=== PATIENT | female | born 1980 | race Caucasian/White ===

== ENCOUNTER 2018-02-07 08:41 | Observation (INO) | payer BC ==
[2018-02-07] MEDS ORDERED: HYDROmorphone 1 MG/ML Syringe IVPUSH ONE ×2 (08:46→10:30)
[2018-02-07] MEDS ORDERED: Sodium Chloride 0.9% 10 ML Syringe FLUSH PRN (08:46)
[2018-02-07] MEDS ORDERED: Ondansetron 4 MG/2 ML SDV IVPUSH ONE ×2 (08:46→10:30)
[2018-02-07] MEDS ORDERED: Sodium Chloride 0.9% 2.5 ML Syringe FLUSH PRN (08:46)
--- NOTE | 2018-02-07 08:53 | EDM.PDOC ---
ED HPI GENERAL MEDICAL PROBLEM - General Stated Complaint: ABDOMINAL PAIN Time Seen by Provider: 02/07/18 08:42 Source of Information: Reports: Patient History Limitations: Reports: No Limitations - History of Present Illness INITIAL COMMENTS - FREE TEXT/NARRATIVE: History of present illness: []Patient presents with severe right flank pain radiating to her right lower quadrant and into her buttocks. Patient has had several bladder infections in the past but has never had a kidney stone. She remained nauseated and has been dry heaving but has not vomited any fluids. Patient denies any trauma, fevers, chills or diarrhea. Review of systems: As per history of present illness and below otherwise all systems reviewed and negative. Past medical history: As per history of present illness and as reviewed below otherwise noncontributory. Surgical history: As per history of present illness and as reviewed below otherwise noncontributory. Social history: No reported history of drug or alcohol abuse. Family history: As per history of present illness and as reviewed below otherwise noncontributory. Physical exam: General: Well developed, well nourished in severe painful distress bent over. HEENT: Atraumatic, normocephalic, pupils reactive, negative for conjunctival pallor or scleral icterus, mucous membranes moist, throat clear, neck supple, nontender, trachea midline. Lungs: Clear to auscultation, breath sounds equal bilaterally, chest nontender. Heart: S1S2, regular, negative for clicks, rubs, or JVD. Abdomen: Soft, nondistended, nontender. Negative for masses or hepatosplenomegaly. Negative for costovertebral tenderness. Pelvis: Stable nontender. Genitourinary: Deferred. Rectal: Deferred. Extremities: Atraumatic, negative for cords or calf pain. Neurovascular unremarkable. Neuro: Awake, alert, oriented. Cranial nerves II through XII unremarkable. Cerebellum unremarkable. Motor and sensory unremarkable throughout. Exam nonfocal. Skin:warm and dry Diagnostics: CBC, comp, lipase, UA, HCG, CT abdomen and pelvis without contrast showing obstructing 4 mm stone at the right UVJ, and hypokalemia 2.7 Therapeutics: Normal saline 1 L, Dilaudid, Zofran ED Course: She required multiple doses of pain meds and antiemetics. Potassium was being replaced at the time of her admission Impression: Ureterolithiasis, hyper acute tammy Prescriptions: None Plan: Dr. Velazquez was consulted due to the obstructive 4 mm stone and difficulty controlling her pain as well as hypokalemia she will be admitted for pain control and to correct hypokalemia. Definitive disposition and diagnosis as appropriate pending reevaluation and review of above. Abdominal Pain Score (Numeric/FACES): 10 - Related Data Allergies Allergy/AdvReac Type Severity Reaction Status Date / Time acetaminophen [From Vicodin] Allergy Nausea and Verified 02/07/18 09:10 Vomiting gluten Allergy Abdominal Verified 06/13/16 12:31 Pain hydrocodone [From Vicodin] Allergy Nausea and Verified 02/07/18 09:10 Vomiting iodine Allergy Rash Verified 06/13/16 12:31 Home Meds: Home Meds Citalopram [Celexa] 2 tab PO DAILY 06/13/16 [History] Levothyroxine 1 tab PO DAILY 06/13/16 [History] Cranberry 3 tab 02/07/18 [History] Fish Oil/[place]-3 Fatty Acids [Fish Oil 1,000 MG] 1,000 mg DAILY 02/07/18 [ History] Flaxseed Oil 1,000 mg DAILY 02/07/18 [History] Ibuprofen [Advil Migraine] 800 mg 02/07/18 [History] Multivitamin [Multi-Vitamin Daily] 1 tab DAILY 02/07/18 [History] Omeprazole 20 mg DAILY 02/07/18 [History] Ondansetron [Zofran ODT] 4 mg PRN 02/07/18 [History] Vit D3/Folic Acid/B2/B6/B12 [Folgard Tablet] 1 tab DAILY 02/07/18 [History] Past Medical History HEENT History: Reports: None Cardiovascular History: Reports: None Respiratory History: Reports: None Gastrointestinal History: Reports: Celiac Disease, Other (See Below) Other Gastrointestinal History: ulcerative colitis Neurological History: Reports: None Psychiatric History: Reports: Other (See Below) Other Psychiatric History: post depression Endocrine/Metabolic History: Reports: Hypothyroidism Dermatologic History: Reports: None - Infectious Disease History Infectious Disease History: Reports: None - Past Surgical History Female Surgical History: Reports: Section, Tubal Ligation ED ROS GENERAL - Review of Systems Review Of Systems: ROS reveals no pertinent complaints other than HPI. ED EXAM, RENAL/ - Physical Exam Exam: See Below (See history of present illness) Course - Vital Signs Last Recorded V/S: Last Vital Signs Temp 97.7 F 02/07/18 08:50 Pulse 72 02/07/18 08:50 Resp 18 02/07/18 08:50 BP 60/31 L 02/07/18 08:50 Pulse Ox 98 02/07/18 08:50 - Orders/Labs/Meds Orders: Active Orders 24 hr Category Date Time Status Patient Status [ADT] Stat ADT 02/07/18 13:10 Active Regular Diet [DIET] Diet 02/07/18 Dinner Active HYDROmorphone [Dilaudid] Med 02/07/18 13:39 Active 2 mg PO Q3H PRN NS + KCl 20mEq/L [Normal Saline with 20 mEq KCl] 1,000 Med 02/07/18 10:00 Active ml IV ASDIRECTED Potassium Chloride 40 meq Med 02/07/18 15:00 Active Sodium Chloride 0.9% [Normal Saline] 500 ml IV ONETIME Sodium Chloride 0.9% [Saline Flush] Med 02/07/18 08:46 Active 10 ml FLUSH ASDIRECTED PRN Sodium Chloride 0.9% [Saline Flush] Med 02/07/18 08:46 Active 2.5 ml FLUSH ASDIRECTED PRN cefTRIAXone [Rocephin in Dextrose,Iso-Osm 1 GM/50 ML] 1 Med 02/08/18 13:45 Active gm Premix Bag 1 bag IV Q24H Saline Lock Insert [OM.PC] Stat Oth 02/07/18 08:45 Ordered Resuscitation Status Routine Resus Stat 02/07/18 13:32 Ordered Medication Orders Hydromorphone HCl (Dilaudid) 2 mg PO Q3H PRN PRN Reason: Abdominal Pain Potassium Chloride/Sodium Chloride (Normal Saline With 20 Meq Kcl) 1,000 mls @ 150 mls/hr IV ASDIRECTED HARSHA Last Admin: 02/07/18 10:11 Dose: 150 mls/hr Potassium Chloride 40 meq/ (Sodium Chloride) 520 mls @ 130 mls/hr IV ONETIME HARSHA Stop: 02/07/18 18:59 Ceftriaxone Sodium/Dextrose 1 (gm/ Premix) 50 mls @ 100 mls/hr IV Q24H HARSHA Sodium Chloride (Saline Flush) 10 ml FLUSH ASDIRECTED PRN PRN Reason: Keep Vein Open Sodium Chloride (Saline Flush) 2.5 ml FLUSH ASDIRECTED PRN PRN Reason: Keep Vein Open Labs: Laboratory Tests 02/07/18 02/07/18 02/07/18 Range/Units 09:05 09:05 11:00 WBC 7.57 (4.0-11.0) K/uL RBC 5.45 (4.30-5.90) M/uL Hgb 13.3 (12.0-16.0) g/dL Hct 41.5 (36.0-46.0) % MCV 76.1 L (80.0-98.0) fL MCH 24.4 L (27.0-32.0) pg MCHC 32.0 (31.0-37.0) g/dL RDW Std Deviation 50.1 (28.0-62.0) fl RDW Coeff of Toshia 18 H (11.0-15.0) % Plt Count 425 H (150-400) K/uL MPV 9.30 (7.40-12.00) fL Neut % (Auto) 65.2 (48.0-80.0) % Lymph % (Auto) 22.7 (16.0-40.0) % [place] % (Auto) 9.1 (0.0-15.0) % Eos % (Auto) 2.2 (0.0-7.0) % Baso % (Auto) 0.8 (0.0-1.5) % Neut # (Auto) 4.9 (1.4-5.7) K/uL Lymph # (Auto) 1.7 (0.6-2.4) K/uL [place] # (Auto) 0.7 (0.0-0.8) K/uL Eos # (Auto) 0.2 (0.0-0.7) K/uL Baso # (Auto) 0.1 (0.0-0.1) K/uL Nucleated RBC % 0.0 /100WBC Nucleated RBCs # 0 K/uL Sodium 137 (136-145) mmol/L Potassium 2.7 L (3.5-5.1) mmol/L Chloride 105 (98-107) mmol/L Carbon Dioxide 24.6 (21.0-32.0) mmol/L BUN 13 (7.0-18.0) mg/dL Creatinine 0.9 (0.6-1.0) mg/dL Est Cr Clr Drug Dosing TNP Estimated GFR (MDRD) > 60.0 ml/min Glucose 101 (74-106) mg/dL Calcium 8.3 L (8.5-10.1) mg/dL Total Bilirubin 0.7 (0.2-1.0) mg/dL AST 37 (15-37) IU/L ALT 45 (14-63) IU/L Alkaline Phosphatase 76 (46-116) U/L Total Protein 6.2 L (6.4-8.2) g/dL Albumin 2.6 L (3.4-5.0) g/dL Globulin 3.6 H (2.0-3.5) g/dL Albumin/Globulin Ratio 0.7 L (1.3-2.8) Lipase 97 (73-393) U/L Urine Color ORANGE Urine Appearance SLT CLOUDY Urine pH 6.5 (5.0-8.0) Ur Specific [place] 1.025 (1.001-1.035) Urine Protein 100 (NEGATIVE) mg/dL Urine Glucose (UA) 250 H (NEGATIVE) mg/dL Urine Ketones TRACE H (NEGATIVE) mg/dL Urine Occult Blood TRACE-LYSED (NEGATIVE) Urine Nitrite POSITIVE H (NEGATIVE) Urine Bilirubin MODERATE H (NEGATIVE) Urine Ictotest POSITIVE Urine Urobilinogen >=8.0 H (<2.0) EU/dL Ur Leukocyte Esterase TRACE (NEGATIVE) Urine RBC 2-4 (0-2/HPF) Urine WBC 0-1 (0-5/HPF) Ur Epithelial Cells FEW (NONE-FEW) Other Crystals Amorphous Sediment MODERATE (NEGATIVE) Urine Bacteria FEW (NEGATIVE) Urine HCG, Qual (NEGATIVE) 02/07/18 Range/Units 11:00 WBC (4.0-11.0) K/uL RBC (4.30-5.90) M/uL Hgb (12.0-16.0) g/dL Hct (36.0-46.0) % MCV (80.0-98.0) fL MCH (27.0-32.0) pg MCHC (31.0-37.0) g/dL RDW Std Deviation (28.0-62.0) fl RDW Coeff of Toshia (11.0-15.0) % Plt Count (150-400) K/uL MPV (7.40-12.00) fL Neut % (Auto) (48.0-80.0) % Lymph % (Auto) (16.0-40.0) % [place] % (Auto) (0.0-15.0) % Eos % (Auto) (0.0-7.0) % Baso % (Auto) (0.0-1.5) % Neut # (Auto) (1.4-5.7) K/uL Lymph # (Auto) (0.6-2.4) K/uL [place] # (Auto) (0.0-0.8) K/uL Eos # (Auto) (0.0-0.7) K/uL Baso # (Auto) (0.0-0.1) K/uL Nucleated RBC % /100WBC Nucleated RBCs # K/uL Sodium (136-145) mmol/L Potassium (3.5-5.1) mmol/L Chloride (98-107) mmol/L Carbon Dioxide (21.0-32.0) mmol/L BUN (7.0-18.0) mg/dL Creatinine (0.6-1.0) mg/dL Est Cr Clr Drug Dosing Estimated GFR (MDRD) ml/min Glucose (74-106) mg/dL Calcium (8.5-10.1) mg/dL Total Bilirubin (0.2-1.0) mg/dL AST (15-37) IU/L ALT (14-63) IU/L Alkaline Phosphatase (46-116) U/L Total Protein (6.4-8.2) g/dL Albumin (3.4-5.0) g/dL Globulin (2.0-3.5) g/dL Albumin/Globulin Ratio (1.3-2.8) Lipase (73-393) U/L Urine Color Urine Appearance Urine pH (5.0-8.0) Ur Specific [place] (1.001-1.035) Urine Protein (NEGATIVE) mg/dL Urine Glucose (UA) (NEGATIVE) mg/dL Urine Ketones (NEGATIVE) mg/dL Urine Occult Blood (NEGATIVE) Urine Nitrite (NEGATIVE) Urine Bilirubin (NEGATIVE) Urine Ictotest Urine Urobilinogen (<2.0) EU/dL Ur Leukocyte Esterase (NEGATIVE) Urine RBC (0-2/HPF) Urine WBC (0-5/HPF) Ur Epithelial Cells (NONE-FEW) Other Crystals Amorphous Sediment (NEGATIVE) Urine Bacteria (NEGATIVE) Urine HCG, Qual NEGATIVE (NEGATIVE) Meds: Medications Generic Name Dose Route Start Last Admin Trade Name Angelina PRN Reason Stop Dose Admin Hydromorphone HCl 2 mg 02/07/18 13:39 Dilaudid PO Q3H PRN Abdominal Pain Potassium Chloride/Sodium Chloride 1,000 mls @ 150 mls/hr 02/07/18 10:00 06/26 10:11 Normal Saline With 20 Meq Kcl IV 150 mls/hr ASDIRECTED HARSHA Administration Potassium Chloride 40 meq/ 520 mls @ 130 mls/hr 02/07/18 15:00 Sodium Chloride IV 02/07/18 18:59 ONETIME HARSHA Ceftriaxone Sodium/Dextrose 1 50 mls @ 100 mls/hr 02/08/18 13:45 gm/ Premix IV Q24H HARSHA Sodium Chloride 10 ml 02/07/18 08:46 Saline Flush FLUSH ASDIRECTED PRN Keep Vein Open Sodium Chloride 2.5 ml 02/07/18 08:46 Saline Flush FLUSH ASDIRECTED PRN Keep Vein Open Discontinued Medications Generic Name Dose Route Start Last Admin Trade Name Angelina PRN Reason Stop Dose Admin Hydromorphone HCl 1 mg 02/07/18 08:46 02/07/18 08:45 Dilaudid IVPUSH 02/07/18 08:47 1 mg ONETIME ONE Administration Hydromorphone HCl 0.5 mg 02/07/18 10:30 02/07/18 10:38 Dilaudid IVPUSH 02/07/18 10:31 0.5 mg ONETIME ONE Administration Sodium Chloride 1,000 mls @ 999 mls/hr 02/07/18 11:17 02/07/18 11:23 Normal Saline IV 02/07/18 12:17 999 mls/hr .Bolus ONE Administration Sodium Chloride 1,000 mls @ 999 mls/hr 02/07/18 11:18 02/07/18 11:22 Normal Saline IV 02/07/18 12:18 Not Given .Bolus ONE Ceftriaxone Sodium/Dextrose 1 50 mls @ 100 mls/hr 02/07/18 11:35 02/07/18 12: 29 gm/ Premix IV 02/07/18 12:04 100 mls/hr ONETIME ONE Administration Ketorolac Tromethamine 30 mg 02/07/18 09:08 02/07/18 09:26 Toradol IVPUSH 02/07/18 09:09 30 mg ONETIME ONE Administration Metoclopramide HCl 10 mg 02/07/18 11:38 02/07/18 12:15 Reglan IV 02/07/18 11:39 10 mg ONETIME ONE Administration Ondansetron HCl 4 mg 02/07/18 08:46 02/07/18 08:42 Zofran IVPUSH 02/07/18 08:47 4 mg ONETIME ONE Administration Ondansetron HCl 4 mg 02/07/18 10:30 02/07/18 10:39 Zofran IVPUSH 02/07/18 10:31 4 mg ONETIME ONE Administration Departure - Departure Time of Disposition: 14:05 Disposition: Refer to Observation Condition: Fair Clinical Impression: Ureterolithiasis, Hypokalemia - Discharge Information *PRESCRIPTION DRUG MONITORING PROGRAM REVIEWED*: No *COPY OF PRESCRIPTION DRUG MONITORING REPORT IN PATIENT OWEN: No Referrals: Ethel Ross DO [Primary Care Provider] - - My Orders Last 24 Hours: My Active Orders 02/07/18 08:45 Saline Lock Insert [OM.PC] Stat 02/07/18 08:46 Sodium Chloride 0.9% [Saline Flush] 10 ml FLUSH ASDIRECTED PRN Sodium Chloride 0.9% [Saline Flush] 2.5 ml FLUSH ASDIRECTED PRN 02/07/18 10:00 NS + KCl 20mEq/L [Normal Saline with 20 mEq KCl] 1,000 ml IV ASDIRECTED 02/07/18 13:10 Patient Status [ADT] Stat - Assessment/Plan Last 24 Hours: My Active Orders 02/07/18 08:45 Saline Lock Insert [OM.PC] Stat 02/07/18 08:46 Sodium Chloride 0.9% [Saline Flush] 10 ml FLUSH ASDIRECTED PRN Sodium Chloride 0.9% [Saline Flush] 2.5 ml FLUSH ASDIRECTED PRN 02/07/18 10:00 NS + KCl 20mEq/L [Normal Saline with 20 mEq KCl] 1,000 ml IV ASDIRECTED 02/07/18 13:10 Patient Status [ADT] Stat
[2018-02-07] MEDS ORDERED: Ketorolac 30 MG/ML SDV IVPUSH ONE (09:08)
[2018-02-07 09:35] LABS: CHLORIDE,CL 105 mmol/L (98-107); SODIUM,NA 137 mmol/L (136-145)
[2018-02-07] MEDS ORDERED: NS + KCl 20mEq/L 1,000 ML IV SCH (10:00)
[2018-02-07] MEDS ORDERED: Sodium Chloride 0.9% 1,000 ML IV ONE ×2 (11:17→11:18)
[2018-02-07] MEDS ORDERED: cefTRIAXone 1 GM in Premix Bag 1 BAG IV ONE (11:35)
[2018-02-07] MEDS ORDERED: Metoclopramide 10 MG/2 ML SDV IV ONE (11:38)
--- NOTE | 2018-02-07 12:43 | CT ---
CT of the abdomen and pelvis without contrast. HISTORY: UTI TECHNIQUE: Axial CT images were obtained of the abdomen and pelvis without contrast. Coronal and sagi ttal reconstructions obtained. FINDINGS: The lung bases are clear, no pleural effusion. The liver, spleen, adrenal glands, and pancreas appear unremarkable for noncontrast examination. The gallbladder appears normal. There is no bulky retroperitoneal lymphadenopathy. No abdominal ascites. Multiple nonpathologically enlarged mesenteric lymph nodes are noted. There is a 4 x 2 mm calcification at the right ureterovesicular junction with moderate proximal hydro nephrosis and perinephric stranding. The large and small bowel are normal in caliber without evidence of obstruction. The appendix appears normal. There is no bulky pelvic lymphadenopathy. No free fluid. No free air. The urinary bladder ap pears normal. The visualized osseous structures appear normal. IMPRESSION: 1. There is an obstructing 4 x 2 mm stone at the right ureterovesicular junction with moderate proxim al hydronephrosis.
--- NOTE | 2018-02-07 14:19 | CONS ---
DATE OF CONSULTATION: 02/07/2018 DATE OF : 1980 PRIMARY CARE PHYSICIAN: None PCP HISTORY OF PRESENT ILLNESS: A 37-year-old, she was seen in the emergency room today. She presented with sudden onset of right flank pain and right lower quadrant pain. She had a UA that was positive for nitrite and trace leukocytes. No significant number of white blood cells, but she thought she was having a bladder infection all week. Her white blood count is normal. Her potassium was 2.7 and calcium was 8.3, creatinine was 0.9. She has chronic colitis. She also celiac disease, that is according to the patient. She is allergic to iodine. She apparently received a firm amount of pain medication. PHYSICAL EXAMINATION: GENERAL APPEARANCE: Normal. She appears reasonably comfortable at this point. This all about 10 to 15 minutes after . HEART: Shows normal sinus rhythm. ABDOMEN: Shows mild tenderness over the right CVA and right lumbar region. LUNGS: Clear. IMPRESSION: 1. She does have 4 mm stone at the right UVJ with moderate 2+ hydronephrosis and hydroureter. 2. Right lower ureteral stone, possible urinary tract infection. PLAN: She was given 1 g Rocephin IV in the emergency room. She will be admitted to the hospital for pain management or IV fluids with potassium, and I will see how she does over the next 24 to 48 hours. BERTHA LEAL /[id number]
[2018-02-07] MEDS ORDERED: Potassium Chloride 40 MEQ in Sodium Chloride 0.9% 500 ML IV SCH (15:00)
[2018-02-07] MEDS: HYDROmorphone 2 MG Tab PO PRN ×2 (15:48→21:19)
[2018-02-08] MEDS: HYDROmorphone 2 MG Tab PO PRN ×2 (03:18→08:23)
[2018-02-08 06:43] LABS: CHLORIDE,CL 111 mmol/L (98-107); SODIUM,NA 140 mmol/L (136-145)
[2018-02-08] MEDS ORDERED: Acetaminophen 325 MG Tab PO ONE (11:40)
[2018-02-08] MEDS ORDERED: Ibuprofen 400 MG Tab PO ONE (11:41)
[2018-02-08 11:55] VITALS: BP 99/53
--- NOTE | 2018-02-08 13:17 | DISCH ---
DATE OF DISCHARGE: PRIMARY CARE PHYSICIAN: None PCP A 37-year-old, she was admitted to the hospital with right lower ureteral stone that was about 3 mm that was causing mild hydronephrosis and severe pain. While she was here, she was maintained on pain medicine. She was given Dilaudid and Tylenol. She was given additional potassium supplement because her potassium at the time of presentation was 2.7. Her CT scan showed no other stones. She was given 2 doses of Rocephin 1 g each, one at the time of admission and next one the following morning. She was given a total of 90 mEq of potassium while here, and her potassium has gone up from 2.7 to 2.8. Admitted on 02/07/2018; she was discharged on 02/08/2018. At the time of discharge, she is comfortable. Her blood pressure was 99/53. Her pulse rate is normal at 78. O2 saturations are normal at 99% on room air. Temperature is normal at 96.2. She was sent home to see if she will pass the stone on her own. She is instructed to come back and see me if she does not pass the stone or if the pain continues beyond another week. She was sent home on KCl 20 mEq twice a day with instructions to see her primary care provider for followup for the potassium level 2 weeks. BERTHA LEAL /[id number]
[2018-02-08] MEDS ORDERED: cefTRIAXone 1 GM in Premix Bag 1 BAG IV SCH (13:45)
== END 2018-02-08 13:30 | disposition home or self-care (01) ==
LOC: MW.ED 08:41 → MW.MS 14:26
PROVIDERS: ADMIT Urology; ATTEND Urology
DX: N13.2 Hydronephrosis with renal and ureteral calculous obstruction (principal)
CPT/HCPCS: 36415; 74176; 80053; 81001; 81025; 83690; 84132; 85025; 96361; 96365; 96366; 96375; 96376; 99285; A9270; J0696; J1170; J1885; J2405; J2765; J3480; J7040; J7120; 99283; G0378

== ENCOUNTER 2018-08-24 17:15 | Emergency (ER) | payer BC ==
[2018-08-24] MEDS ORDERED: Sodium Chloride 0.9% 1,000 ML IV ONE (17:17)
--- NOTE | 2018-08-24 17:17 | EDM.PDOC ---
<Nico Terrell - Last Filed: 08/24/18 19:27> ED HPI GENERAL MEDICAL PROBLEM - General Chief Complaint: Syncope Stated Complaint: CHEST PAIN Time Seen by Provider: 08/24/18 17:17 Source of Information: Reports: Patient - History of Present Illness INITIAL COMMENTS - FREE TEXT/NARRATIVE: HISTORY AND PHYSICAL: History of present illness: [Patient presents with syncope, she has known iron deficiency calcium deficiency and celiac disease, she was at the cancer center and was infused with a new brand of iron in developing welts/urticarial rash and originally presented for this, however , she had an episode of syncope out in our lobby no fever nausea vomiting chills sweats alert interactive at this time no distress no lip swelling tongue swelling or oral pharyngeal edema Patient did develop some rigidity/seizure-like activity however she was fully aware talking and answering questions more consistent with pseudoseizure activity ] Review of systems: As per history of present illness and below otherwise all systems reviewed and negative. Past medical history: As per history of present illness and as reviewed below otherwise noncontributory. Surgical history: As per history of present illness and as reviewed below otherwise noncontributory. Social history: No reported history of drug or alcohol abuse. Family history: As per history of present illness and as reviewed below otherwise noncontributory. Physical exam: HEENT: Atraumatic, normocephalic, pupils reactive, negative for conjunctival pallor or scleral icterus, mucous membranes moist, throat clear, neck supple, nontender, trachea midline. no Tongue swelling or oral pharyngeal edema Lungs: Clear to auscultation, breath sounds equal bilaterally, chest nontender. Heart: S1S2, regular, negative for clicks, rubs, or JVD. Abdomen: Soft, nondistended, nontender. Negative for masses or hepatosplenomegaly. Negative for costovertebral tenderness. Pelvis: Stable nontender. Genitourinary: Deferred. Rectal: Deferred. Extremities: Atraumatic, negative for cords or calf pain. Neurovascular unremarkable. Neuro: Awake, alert, oriented. Cranial nerves II through XII unremarkable. Cerebellum unremarkable. Motor and sensory unremarkable throughout. Exam nonfocal. Skin urticarial rash over arms trunks the legs no lip swelling tongue swelling or oral pharyngeal edema Diagnostics: [CBC CMP UA hCG troponin EKG Chest [address] orthostatic vitals ] Therapeutics: NS Solu-Medrol 125 mg IV Benadryl 50 mg IV ] Impression: [Syncope]-etiology unclear Urticarial rash-resolved Pseudoseizure Chronic history baseline Definitive disposition and diagnosis as appropriate pending reevaluation and review of above. chest Pain Score (Numeric/FACES): 5 - Related Data Allergies Allergy/AdvReac Type Severity Reaction Status Date / Time acetaminophen [From Vicodin] Allergy Nausea and Verified 02/07/18 09:10 Vomiting gluten Allergy Abdominal Verified 06/13/16 12:31 Pain hydrocodone [From Vicodin] Allergy Nausea and Verified 02/07/18 09:10 Vomiting iodine Allergy Rash Verified 06/13/16 12:31 Home Meds: Home Meds Citalopram [Celexa] 2 tab PO DAILY 06/13/16 [History] Levothyroxine 1 tab PO DAILY 06/13/16 [History] Cranberry 3 tab 02/07/18 [History] Fish Oil/[place]-3 Fatty Acids [Fish Oil 1,000 MG] 1,000 mg DAILY 02/07/18 [ History] Flaxseed Oil 1,000 mg DAILY 02/07/18 [History] Ibuprofen [Advil Migraine] 800 mg 02/07/18 [History] Multivitamin [Multi-Vitamin Daily] 1 tab DAILY 02/07/18 [History] Omeprazole 20 mg DAILY 02/07/18 [History] Ondansetron [Zofran ODT] 4 mg PRN 02/07/18 [History] Vit D3/Folic Acid/B2/B6/B12 [Folgard Tablet] 1 tab DAILY 02/07/18 [History] Past Medical History HEENT History: Reports: None Cardiovascular History: Reports: None Respiratory History: Reports: None Gastrointestinal History: Reports: Celiac Disease, Other (See Below) Other Gastrointestinal History: ulcerative colitis Neurological History: Reports: None Psychiatric History: Reports: Other (See Below) Other Psychiatric History: post depression Endocrine/Metabolic History: Reports: Hypothyroidism Dermatologic History: Reports: None - Infectious Disease History Infectious Disease History: Reports: None - Past Surgical History Female Surgical History: Reports: Section, Tubal Ligation Social & Family History - Family History Family Medical History: Noncontributory - Caffeine Use Caffeine Use: Reports: Soda Caffeine Use Comment: "lots of Dr. Pope every day" ED ROS GENERAL - Review of Systems Review Of Systems: ROS reveals no pertinent complaints other than HPI. ED EXAM, GENERAL - Physical Exam Exam: See Below (See dictation) Course - Vital Signs Last Recorded V/S: Last Vital Signs Temp 36.4 C 08/24/18 17:18 Pulse 80 08/24/18 17:18 Resp 16 08/24/18 17:18 BP 115/78 08/24/18 17:18 Pulse Ox 100 08/24/18 17:18 Orthostatic Blood Pressure [ 98/63 Standing] Orthostatic Blood Pressure [ 115/67 Sitting] Orthostatic Blood Pressure [ 112/65 Supine] - Orders/Labs/Meds Orders: Active Orders 24 hr Category Date Time Status EKG Documentation Completion [RC] STAT Care 08/24/18 17:17 Active Orthostatic Vital Signs [RC] ASDIRECTED Care 08/24/18 17:18 Active COMPREHENSIVE METABOLIC PN,CMP [CHEM] Stat Lab 08/24/18 17:10 Results TROPONIN I [CHEM] Stat Lab 08/24/18 17:10 Results UA RFX NEMO AND CULT IF INDIC [URIN] Stat Lab 08/24/18 18:30 Received Labs: Laboratory Tests 08/24/18 08/24/18 08/24/18 Range/Units 17:10 17:10 18:30 WBC 8.18 (4.0-11.0) K/uL RBC 4.81 (4.30-5.90) M/uL Hgb 12.4 (12.0-16.0) g/dL Hct 38.9 (36.0-46.0) % MCV 80.9 (80.0-98.0) fL MCH 25.8 L (27.0-32.0) pg MCHC 31.9 (31.0-37.0) g/dL RDW Std Deviation 53.9 (28.0-62.0) fl RDW Coeff of [place] 19 H (11.0-15.0) % Plt Count 430 H (150-400) K/uL MPV 9.50 (7.40-12.00) fL Neut % (Auto) 64.4 (48.0-80.0) % Lymph % (Auto) 26.0 (16.0-40.0) % [place] % (Auto) 6.7 (0.0-15.0) % Eos % (Auto) 2.3 (0.0-7.0) % Baso % (Auto) 0.6 (0.0-1.5) % Neut # (Auto) 5.3 (1.4-5.7) K/uL Lymph # (Auto) 2.1 (0.6-2.4) K/uL [place] # (Auto) 0.6 (0.0-0.8) K/uL Eos # (Auto) 0.2 (0.0-0.7) K/uL Baso # (Auto) 0.1 (0.0-0.1) K/uL Sodium 139 (136-145) mmol/L Potassium 3.0 L (3.5-5.1) mmol/L Chloride 103 (98-107) mmol/L Carbon Dioxide 25.2 (21.0-32.0) mmol/L BUN 7 (7.0-18.0) mg/dL Creatinine 0.7 (0.6-1.0) mg/dL Est Cr Clr Drug Dosing 118.99 mL/min Estimated GFR (MDRD) > 60.0 ml/min Glucose 96 (74-106) mg/dL Calcium 8.6 (8.5-10.1) mg/dL Total Bilirubin 0.8 (0.2-1.0) mg/dL ALT 48 (14-63) IU/L Alkaline Phosphatase 81 (46-116) U/L Troponin I < 0.050 (0.000-0.056) ng/mL Total Protein 6.6 (6.4-8.2) g/dL Albumin 2.8 L (3.4-5.0) g/dL Globulin 3.8 (2.6-4.0) g/dL Albumin/Globulin Ratio 0.7 L (0.9-1.6) Urine Color YELLOW Urine Appearance CLEAR Urine pH 6.5 (5.0-8.0) Ur Specific [place] <= 1.005 (1.001-1.035) Urine Protein NEGATIVE (NEGATIVE) mg/dL Urine Glucose (UA) NEGATIVE (NEGATIVE) mg/dL Urine Ketones NEGATIVE (NEGATIVE) mg/dL Urine Occult Blood SMALL H (NEGATIVE) Urine Nitrite NEGATIVE (NEGATIVE) Urine Bilirubin NEGATIVE (NEGATIVE) Urine Urobilinogen 0.2 (<2.0) EU/dL Ur Leukocyte Esterase NEGATIVE (NEGATIVE) Urine RBC 1-2 (0-2/HPF) Urine WBC 0-1 (0-5/HPF) Ur Epithelial Cells OCCASIONAL (NONE-FEW) Urine Bacteria RARE (NEGATIVE) Meds: Medications Discontinued Medications Generic Name Dose Route Start Last Admin Trade Name Roqueq PRN Reason Stop Dose Admin Diphenhydramine HCl 50 mg 08/24/18 17:22 08/24/18 17:26 Benadryl IVPUSH 08/24/18 17:23 50 mg ONETIME ONE Administration Sodium Chloride 1,000 mls @ 999 mls/hr 08/24/18 17:17 08/24/18 17:26 Normal Saline IV 08/24/18 18:17 999 mls/hr STAT ONE Administration Lorazepam Confirm 08/24/18 17:33 08/24/18 17:40 Ativan Administered 08/24/18 17:34 Not Given Dose 2 mg .ROUTE .STK-MED ONE Lorazepam 1 mg 08/24/18 17:39 08/24/18 17:40 Ativan IVPUSH 08/24/18 17:40 1 mg ONETIME ONE Administration Methylprednisolone Sodium Succinate 125 mg 08/24/18 17:22 08/24/18 17:26 Solu-Medrol IVPUSH 08/24/18 17:23 125 mg ONETIME ONE Administration Departure - Departure Time of Disposition: 19:27 Disposition: Home, Self-Care 01 Condition: Good Clinical Impression: Syncope - Discharge Information Referrals: PCP,Unknown [Primary Care Provider] - Forms: ED Department Discharge Additional Instructions: The following information is given to patients seen in the emergency department who are being discharged to home. This information is to outline your options for follow-up care. We provide all patients seen in our emergency department with a follow-up referral. The need for follow-up, as well as the timing and circumstances, are variable depending upon the specifics of your emergency department visit. If you don't have a primary care physician on staff, we will provide you with a referral. We always advise you to contact your personal physician following an emergency department visit to inform them of the circumstance of the visit and for follow-up with them and/or the need for any referrals to a consulting specialist. The emergency department will also refer you to a specialist when appropriate. This referral assures that you have the opportunity for followup care with a specialist. All of these measure are taken in an effort to provide you with optimal care, which includes your followup. Under all circumstances we always encourage you to contact your private physician who remains a resource for coordinating your care. When calling for followup care, please make the office aware that this follow-up is from your recent emergency room visit. If for any reason you are refused follow-up, please contact the [facility] emergency department at and asked to speak to the emergency department charge nurse. Follow-up primary medical doctor as needed as discussed return as needed as discussed push fluids activity as tolerated <Benjamin Baker - Last Filed: 08/24/18 19:33> Course - Vital Signs Text/Narrative:: Patient's emergency department course has been unremarkable diagnostic studies were similarly unremarkable CT scan was negative patient will be discharged accordingly Departure - Departure Condition: Good
[2018-08-24] MEDS ORDERED: diphenhydrAMINE 50 MG/ML SDV IVPUSH ONE (17:22)
[2018-08-24] MEDS ORDERED: methylPREDNISolone Sodium Succinate 125 MG/2 ML SDV IVPUSH ONE (17:22)
[2018-08-24] MEDS ORDERED: LORazepam 2 MG/ML SDV ONE (17:33)
[2018-08-24] MEDS ORDERED: LORazepam 2 MG/ML SDV IVPUSH ONE (17:39)
[2018-08-24 17:56] LABS: CHLORIDE,CL 103 mmol/L (98-107); SODIUM,NA 139 mmol/L (136-145)
--- NOTE | 2018-08-24 18:11 | CR ---
INDICATION: syncope INDICATION: Syncope. TECHNIQUE: Chest 1 view. COMPARISON: 06/13/2016. FINDINGS: Cardiovascular and mediastinum: Heart size and vasculature are normal in caliber and appearance. Mediastinum is within normal limits. Lungs and pleural space: Lungs are clear. No sign of infiltrate or mass. No sign of pleural effusion. No pneumothorax. Bones and soft tissues: No significant findings. IMPRESSION: Lungs are clear. Dictated by Candelario Turcios MD @ 08/24/2018 6:10:13 PM Dictated by: Candelario Turcios MD @ 08/24/2018 18:10:21 (Electronically Signed)
--- NOTE | 2018-08-24 19:27 | CT ---
INDICATION: Syncope TECHNIQUE: CT head without contrast. COMPARISON: None. FINDINGS: CSF spaces: Within normal limits for age. Brain parenchyma: The luna-white differentiation is normal. No sign of mass, hemorrhage, or midline shift. Skull base and calvarium: The visualized paranasal sinuses and mastoid air cells demonstrate no acute or significant findings. The visualized orbits are grossly unremarkable. No skull fractures. IMPRESSION: Unremarkable noncontrast head CT. Please note that all CT scans at this facility use dose modulation, iterative reconstruction, and/or weight-based dosing when appropriate to reduce radiation dose to as low as reasonably achievable. Dictated by Monster Patel MD @ Aug 24 2018 7:24PM Signed by Dr. Monster Patel @ Aug 24 2018 7:26PM
[2018-08-24 20:28] VITALS: BP 121/71
== END 2018-08-24 19:52 | disposition home or self-care (01) ==
LOC: MW.ED 17:15
DX: R55 Syncope and collapse (principal); L50.9 Urticaria, unspecified; R56.9 Unspecified convulsions; Z88.5 Allergy status to narcotic agent; Z79.899 Other long term (current) drug therapy
CPT/HCPCS: 70450; 71045; 80053; 81001; 84484; 85025; 93005; 96361; 96374; 96375; 99285; J1200; J2060; J2930; J7040; 99284

== ENCOUNTER 2018-12-20 20:06 | Emergency (ER) | payer BC ==
[2018-12-20] MEDS ORDERED: Sodium Chloride 0.9% 10 ML Syringe FLUSH PRN (20:34)
[2018-12-20] MEDS ORDERED: Sodium Chloride 0.9% 2.5 ML Syringe FLUSH PRN (20:34)
[2018-12-20] MEDS ORDERED: Ketorolac 30 MG/ML SDV IVPUSH ONE (20:36)
[2018-12-20] MEDS ORDERED: Sodium Chloride 0.9% 1,000 ML IV ONE (20:36)
[2018-12-20] MEDS ORDERED: Ondansetron 4 MG/2 ML SDV IVPUSH ONE (20:36)
--- NOTE | 2018-12-20 20:39 | EDM.PDOC ---
ED HPI GENERAL MEDICAL PROBLEM - General Chief Complaint: Genitourinary Problem Stated Complaint: PT HAS BLADDER INFECTION Time Seen by Provider: 12/20/18 20:28 - History of Present Illness INITIAL COMMENTS - FREE TEXT/NARRATIVE: HISTORY AND PHYSICAL: History of present illness: The patient is a 37-year-old female with a long-standing history of colitis and has had kidney stones and frequent UTIs, at least 3 per year, and presents with urinary frequency burning and suprapubic pain for the last 3 weeks which is now traveling to bilateral flanks and she is concerned about an infection. She says that because of her colitis she doesn't want to take antibiotics often so she tries to treat her UTIs at home and usually she doesn't have to go see the doctor. This is not improved so she is here for care. She's had nausea but no vomiting and she says that whenever something else is stressing her she gets more diarrhea and her colitis has "kicked in" and she's having more loose stools but she is not concerned about her bowels today or the colitis. She's had no fevers chills no chest pain or shortness of breath and no midline back pain. The patient says she had a cervical ablation Review of systems: As per history of present illness and below otherwise all systems reviewed and negative. Past medical history: As per history of present illness and as reviewed below otherwise noncontributory. Surgical history: As per history of present illness and as reviewed below otherwise noncontributory. Social history: No reported history of drug or alcohol abuse. Family history: As per history of present illness and as reviewed below otherwise noncontributory. Physical exam: General: Well-developed well-nourished female somewhat exaggerated on my evaluation and is nontoxic, vital signs are noted by me HEENT: Atraumatic, normocephalic, pupils reactive, negative for conjunctival pallor or scleral icterus, mucous membranes moist, throat clear, neck supple, nontender, trachea midline. Lungs: Clear to auscultation, breath sounds equal bilaterally, chest nontender. Heart: S1S2, regular rate and rhythm no overt murmurs Abdomen: Soft, nondistended, hyperactive bowel sounds, no tympany on percussion , abdomen is very soft and only tenderness in the suprapubic area Negative for masses or hepatosplenomegaly. Patient has bilateral costovertebral tenderness with even minor palpation and is somewhat exaggerated Pelvis: Stable nontender. Genitourinary: Deferred. Rectal: Deferred. Extremities: Atraumatic, negative for cords or calf pain. Neurovascular unremarkable. Neuro: Awake, alert, oriented. Cranial nerves II through XII unremarkable. Cerebellum unremarkable. Motor and sensory unremarkable throughout. Exam nonfocal. Diagnostics: UA UCG urine culture CBC CMP lactate to scan of the abdomen and pelvis Therapeutics: IV fluids Zofran Toradol potassium by mouth, Cipro I discussed all testing results with the patient and at bedside and she says she has had ovarian cysts in the past so she is not surprised and she is now telling me that her suprapubic pain is little bit more on the right. She is aware of the low potassium and that I will give her 1 dose here of potassium and never met recommended using dietary resources to increase the potassium. She is aware of the other CT scan findings include the incidental liver cyst and will follow that up in the clinic. She has a provider at [facility]. She does not have a health information specialist and I will give her our on-call referral information. She is aware that she needs to have this followed up with a pelvic ultrasound. We discussed antibiotic treatment for the UTI and she is comfortable with Cipro. She now tells me she has had many UTIs in the past but she has not taken antibiotics several years and is always treated him symptomatically at home. She is aware of reasons to return to the ED Impression: Suprapubic pain, UTI, right ovarian cyst, mild hypokalemia Definitive disposition and diagnosis as appropriate pending reevaluation and review of above. Right Flank Pain Score (Numeric/FACES): 7 - Related Data Allergies Allergy/AdvReac Type Severity Reaction Status Date / Time acetaminophen [From Vicodin] Allergy Nausea and Verified 12/20/18 20:22 Vomiting gluten Allergy Abdominal Verified 12/20/18 20:22 Pain hydrocodone [From Vicodin] Allergy Nausea and Verified 12/20/18 20:22 Vomiting iodine Allergy Rash Verified 12/20/18 20:22 Home Meds: Home Meds Citalopram [Celexa] 2 tab PO DAILY 06/13/16 [History] Levothyroxine 1 tab PO DAILY 06/13/16 [History] Cranberry 3 tab PO ASDIRECTED 02/07/18 [History] Fish Oil/[place]-3 Fatty Acids [Fish Oil 1,000 MG] 1,000 mg PO DAILY 02/07/18 [ History] Flaxseed Oil 1,000 mg PO DAILY 02/07/18 [History] Ibuprofen [Advil Migraine] 800 mg PO ASDIRECTED 02/07/18 [History] Multivitamin [Multi-Vitamin Daily] 1 tab PO DAILY 02/07/18 [History] Omeprazole 20 mg PO DAILY 02/07/18 [History] Ondansetron [Zofran ODT] 4 mg PO ASDIRECTED PRN 02/07/18 [History] Vit D3/Folic Acid/B2/B6/B12 [Folgard Tablet] 1 tab PO DAILY 02/07/18 [History] Escitalopram [Lexapro] 40 mg PO DAILY 12/20/18 [History] Past Medical History HEENT History: Reports: None Cardiovascular History: Reports: None Respiratory History: Reports: None Gastrointestinal History: Reports: Celiac Disease, Other (See Below) Other Gastrointestinal History: ulcerative colitis Neurological History: Reports: None Psychiatric History: Reports: Other (See Below) Other Psychiatric History: post depression Endocrine/Metabolic History: Reports: Hypothyroidism Dermatologic History: Reports: None - Infectious Disease History Infectious Disease History: Reports: None - Past Surgical History Female Surgical History: Reports: Section, Tubal Ligation Social & Family History - Family History Family Medical History: Noncontributory - Tobacco Use Smoking Status *Q: Never Smoker Second Hand Smoke Exposure: No - Caffeine Use Caffeine Use: Reports: None Caffeine Use Comment: "lots of Dr. Pope every day" - Recreational Drug Use Recreational Drug Use: No ED ROS GENERAL - Review of Systems Review Of Systems: ROS reveals no pertinent complaints other than HPI. ED EXAM, GENERAL - Physical Exam Exam: See Below (See dictation) Course - Vital Signs Last Recorded V/S: Last Vital Signs Temp 36.1 C 12/20/18 21:45 Pulse 69 12/20/18 21:45 Resp 16 12/20/18 21:45 BP 102/58 L 12/20/18 21:45 Pulse Ox 98 12/20/18 21:45 - Orders/Labs/Meds Orders: Active Orders 24 hr Category Date Time Status CULTURE URINE [RM] Stat Lab 12/20/18 20:31 Received Ciprofloxacin [Ciprofloxacin HCl] Med 12/20/18 22:25 Once 500 mg PO ONETIME ONE Sodium Chloride 0.9% [Saline Flush] Med 12/20/18 20:34 Active 10 ml FLUSH ASDIRECTED PRN Sodium Chloride 0.9% [Saline Flush] Med 12/20/18 20:34 Active 2.5 ml FLUSH ASDIRECTED PRN Saline Lock Insert [OM.PC] Stat Oth 12/20/18 20:34 Ordered Medication Orders Sodium Chloride (Saline Flush) 10 ml FLUSH ASDIRECTED PRN PRN Reason: Keep Vein Open Sodium Chloride (Saline Flush) 2.5 ml FLUSH ASDIRECTED PRN PRN Reason: Keep Vein Open Labs: Laboratory Tests 12/20/18 12/20/18 12/20/18 Range/Units 20:31 20:44 20:44 WBC 11.72 H (4.0-11.0) K/uL RBC 5.35 (4.30-5.90) M/uL Hgb 15.2 (12.0-16.0) g/dL Hct 46.5 H (36.0-46.0) % MCV 86.9 (80.0-98.0) fL MCH 28.4 (27.0-32.0) pg MCHC 32.7 (31.0-37.0) g/dL RDW Std Deviation 53.2 (28.0-62.0) fl RDW Coeff of Toshia 17 H (11.0-15.0) % Plt Count 471 H (150-400) K/uL MPV 10.00 (7.40-12.00) fL Neut % (Auto) 79.0 (48.0-80.0) % Lymph % (Auto) 12.2 L (16.0-40.0) % [place] % (Auto) 6.1 (0.0-15.0) % Eos % (Auto) 2.4 (0.0-7.0) % Baso % (Auto) 0.3 (0.0-1.5) % Neut # (Auto) 9.3 H (1.4-5.7) K/uL Lymph # (Auto) 1.4 (0.6-2.4) K/uL [place] # (Auto) 0.7 (0.0-0.8) K/uL Eos # (Auto) 0.3 (0.0-0.7) K/uL Baso # (Auto) 0.0 (0.0-0.1) K/uL Nucleated RBC % 0.0 /100WBC Nucleated RBCs # 0 K/uL Lactate (0.20-2.00) mmol/L Sodium 141 (136-145) mmol/L Potassium 2.9 L (3.5-5.1) mmol/L Chloride 111 H (98-107) mmol/L Carbon Dioxide 20.6 L (21.0-32.0) mmol/L BUN 11 (7.0-18.0) mg/dL Creatinine 0.8 (0.6-1.0) mg/dL Est Cr Clr Drug Dosing 104.12 mL/min Estimated GFR (MDRD) > 60.0 ml/min Glucose 99 (74-106) mg/dL Calcium 7.9 L (8.5-10.1) mg/dL Total Bilirubin 0.8 (0.2-1.0) mg/dL AST 55 H (15-37) IU/L ALT 63 (14-63) IU/L Alkaline Phosphatase 83 (46-116) U/L Total Protein 6.7 (6.4-8.2) g/dL Albumin 2.9 L (3.4-5.0) g/dL Globulin 3.8 (2.6-4.0) g/dL Albumin/Globulin Ratio 0.8 L (0.9-1.6) Urine Color Urine Appearance Urine pH (5.0-8.0) Ur Specific [place] (1.001-1.035) Urine Protein (NEGATIVE) mg/dL Urine Glucose (UA) (NEGATIVE) mg/dL Urine Ketones (NEGATIVE) mg/dL Urine Occult Blood (NEGATIVE) Urine Nitrite (NEGATIVE) Urine Bilirubin (NEGATIVE) Urine Ictotest Urine Urobilinogen (<2.0) EU/dL Ur Leukocyte Esterase (NEGATIVE) Urine RBC (0-2/HPF) Urine WBC (0-5/HPF) Ur Epithelial Cells (NONE-FEW) Urine Bacteria (NEGATIVE) Urine Mucus (NONE-MOD) Urinalysis Comment Urine HCG, Qual NEGATIVE (NEGATIVE) 12/20/18 12/20/18 Range/Units 20:44 20:45 WBC (4.0-11.0) K/uL RBC (4.30-5.90) M/uL Hgb (12.0-16.0) g/dL Hct (36.0-46.0) % MCV (80.0-98.0) fL MCH (27.0-32.0) pg MCHC (31.0-37.0) g/dL RDW Std Deviation (28.0-62.0) fl RDW Coeff of [place]oshia (11.0-15.0) % Plt Count (150-400) K/uL MPV (7.40-12.00) fL Neut % (Auto) (48.0-80.0) % Lymph % (Auto) (16.0-40.0) % [place] % (Auto) (0.0-15.0) % Eos % (Auto) (0.0-7.0) % Baso % (Auto) (0.0-1.5) % Neut # (Auto) (1.4-5.7) K/uL Lymph # (Auto) (0.6-2.4) K/uL [place] # (Auto) (0.0-0.8) K/uL Eos # (Auto) (0.0-0.7) K/uL Baso # (Auto) (0.0-0.1) K/uL Nucleated RBC % /100WBC Nucleated RBCs # K/uL Lactate 0.7 (0.20-2.00) mmol/L Sodium (136-145) mmol/L Potassium (3.5-5.1) mmol/L Chloride (98-107) mmol/L Carbon Dioxide (21.0-32.0) mmol/L BUN (7.0-18.0) mg/dL Creatinine (0.6-1.0) mg/dL Est Cr Clr Drug Dosing mL/min Estimated GFR (MDRD) ml/min Glucose (74-106) mg/dL Calcium (8.5-10.1) mg/dL Total Bilirubin (0.2-1.0) mg/dL AST (15-37) IU/L ALT (14-63) IU/L Alkaline Phosphatase (46-116) U/L Total Protein (6.4-8.2) g/dL Albumin (3.4-5.0) g/dL Globulin (2.6-4.0) g/dL Albumin/Globulin Ratio (0.9-1.6) Urine Color YELLOW Urine Appearance CLEAR Urine pH 6.0 (5.0-8.0) Ur Specific [place] 1.025 (1.001-1.035) Urine Protein 100 H (NEGATIVE) mg/dL Urine Glucose (UA) NEGATIVE (NEGATIVE) mg/dL Urine Ketones NEGATIVE (NEGATIVE) mg/dL Urine Occult Blood NEGATIVE (NEGATIVE) Urine Nitrite POSITIVE H (NEGATIVE) Urine Bilirubin SMALL H (NEGATIVE) Urine Ictotest POSITIVE Urine Urobilinogen 4.0 H (<2.0) EU/dL Ur Leukocyte Esterase TRACE H (NEGATIVE) Urine RBC 0-1 (0-2/HPF) Urine WBC 2-5 (0-5/HPF) Ur Epithelial Cells FEW (NONE-FEW) Urine Bacteria 1+ H (NEGATIVE) Urine Mucus LIGHT (NONE-MOD) Urinalysis Comment Urine HCG, Qual (NEGATIVE) Meds: Medications Generic Name Dose Route Start Last Admin Trade Name Angelina PRN Reason Stop Dose Admin Sodium Chloride 10 ml 12/20/18 20:34 Saline Flush FLUSH ASDIRECTED PRN Keep Vein Open Sodium Chloride 2.5 ml 12/20/18 20:34 Saline Flush FLUSH ASDIRECTED PRN Keep Vein Open Discontinued Medications Generic Name Dose Route Start Last Admin Trade Name Angelina PRN Reason Stop Dose Admin Sodium Chloride 1,000 mls @ 999 mls/hr 12/20/18 20:36 12/20/18 20:45 Normal Saline IV 12/20/18 21:36 999 mls/hr STAT ONE Administration Ketorolac Tromethamine 30 mg 12/20/18 20:36 12/20/18 20:45 Toradol IVPUSH 12/20/18 20:37 30 mg ONETIME ONE Administration Ondansetron HCl 4 mg 12/20/18 20:36 12/20/18 20:45 Zofran IVPUSH 12/20/18 20:37 4 mg ONETIME ONE Administration Potassium Chloride 40 meq 12/20/18 22:19 Klor-Con M20 PO 12/20/18 22:20 ONETIME ONE Departure - Departure Time of Disposition: 22:27 Disposition: Home, Self-Care 01 Condition: Good Clinical Impression: UTI, Urinary tract infectious disease, Cyst of ovary, Hypokalemia - Discharge Information Referrals: Ethel Ross DO [Primary Care Provider] - Forms: ED Department Discharge Additional Instructions: The following information is given to patients seen in the emergency department who are being discharged to home. This information is to outline your options for follow-up care. We provide all patients seen in our emergency department with a follow-up referral. The need for follow-up, as well as the timing and circumstances, are variable depending upon the specifics of your emergency department visit. If you don't have a primary care physician on staff, we will provide you with a referral. We always advise you to contact your personal physician following an emergency department visit to inform them of the circumstance of the visit and for follow-up with them and/or the need for any referrals to a consulting specialist. The emergency department will also refer you to a specialist when appropriate. This referral assures that you have the opportunity for followup care with a specialist. All of these measure are taken in an effort to provide you with optimal care, which includes your followup. Under all circumstances we always encourage you to contact your private physician who remains a resource for coordinating your care. When calling for followup care, please make the office aware that this follow-up is from your recent emergency room visit. If for any reason you are refused follow-up, please contact the [facility] emergency department at and ask to speak to the emergency department charge nurse. [address] [place] [address] [facility] [address] [place] [id number] Please call and follow-up with your provider at [facility] for further care and evaluation of your potassium level and your urinary tract infection. He may also follow up with her for further evaluation of the incidental liver cyst seen on the CAT scan. Please also connect with gynecology for further care and management of the right ovarian cyst as it needs to be followed closely due to its size. Push hydration take all medications as prescribed and return to ER as needed and as discussed - My Orders Last 24 Hours: My Active Orders 12/20/18 20:31 CULTURE URINE [RM] Stat 12/20/18 20:34 Sodium Chloride 0.9% [Saline Flush] 10 ml FLUSH ASDIRECTED PRN Sodium Chloride 0.9% [Saline Flush] 2.5 ml FLUSH ASDIRECTED PRN Saline Lock Insert [OM.PC] Stat 12/20/18 22:25 Ciprofloxacin [Ciprofloxacin HCl] 500 mg PO ONETIME ONE - Assessment/Plan Last 24 Hours: My Active Orders 12/20/18 20:31 CULTURE URINE [RM] Stat 12/20/18 20:34 Sodium Chloride 0.9% [Saline Flush] 10 ml FLUSH ASDIRECTED PRN Sodium Chloride 0.9% [Saline Flush] 2.5 ml FLUSH ASDIRECTED PRN Saline Lock Insert [OM.PC] Stat 12/20/18 22:25 Ciprofloxacin [Ciprofloxacin HCl] 500 mg PO ONETIME ONE
--- NOTE | 2018-12-20 22:03 | CT ---
INDICATION: Bilateral flank pain. Evaluate for stone or pyelonephritis. CT ABDOMEN AND PELVIS WITHOUT CONTRAST TECHNIQUE: Multidetector CT imaging was performed through the abdomen and pelvis without intravenous contrast administration. Coronal and sagittal reconstructions were generated. COMPARISON: None. FINDINGS: Lower chest: Lung bases are clear. Liver: Indeterminate poorly defined 1.6 centimeter hypodensity in the right hepatic lobe posteriorly on image 21 of series 201. Gallbladder and bile ducts: No gallbladder wall thickening or calcified gallstones. No biliary dilation identified. Pancreas: Unremarkable. Spleen: Normal. Adrenals: No nodules or masses. Kidneys, ureters, and urinary bladder: No urinary tract stones identified. No hydronephrosis. No definite noncontrast CT evidence of pyelonephritis. Nondistended urinary bladder. No bladder mass or definite pathologic wall thickening. Gastrointestinal tract: Nonspecific diffuse increase in fluid and gas throughout the small bowel and colon, with scattered air fluid levels. No definite caliber transition or wall thickening. Appendix not identified. Vascular structures: Normal for age. Peritoneum: No free air, abscess, or significant free fluid. Lymph nodes: Numerous mildly enlarged lymph nodes throughout the mesentery. These nonspecific mildly enlarged nodes are larger and more numerous than typically seen with mesenteric adenitis Reproductive organs: 6.4 x 5.7 x 6.3 centimeter cystic lesion in the right adnexal area, probably representing a cystic lesion within the right ovary. Unremarkable uterus and left ovary. Bones: Normal for age. IMPRESSION: 1. Nonspecific diffuse increase in bowel fluid and gas. Gastroenteritis or nonspecific ileus are possible. 2. Nonspecific mild mesenteric lymphadenopathy. Follow up is recommended. 3. Indeterminate 1.6 centimeter hypodense liver lesion in the right hepatic lobe. Consider liver MRI or liver protocol CT for further evaluation. 4. 6.4 centimeter right adnexal cystic lesion, likely within the right ovary. Pelvic ultrasound is recommended for further evaluation. 5. No urinary tract stones or hydronephrosis. ADDIE AYON MD [employer] Dictated by Tree Ayon MD @ 12/20/2018 9:50:34 PM Dictated by: Tree Ayon MD @ 12/20/2018 22:01:36 (Electronically Signed)
[2018-12-20 22:17] LABS: CHLORIDE,CL 111 mmol/L (98-107); SODIUM,NA 141 mmol/L (136-145)
[2018-12-20] MEDS ORDERED: Potassium Chloride 20 MEQ Tab.ER PO ONE (22:19)
[2018-12-20] MEDS ORDERED: Ciprofloxacin 500 MG Tab PO ONE (22:25)
[2018-12-20 22:32] VITALS: BP 108/56
== END 2018-12-20 22:35 | disposition home or self-care (01) ==
LOC: MW.ED 20:06
DX: N39.0 Urinary tract infection, site not specified (principal); N83.201 Unspecified ovarian cyst, right side; E87.6 Hypokalemia; E03.9 Hypothyroidism, unspecified; Z88.6 Allergy status to analgesic agent; Z91.018 Allergy to other foods; Z88.5 Allergy status to narcotic agent; Z79.899 Other long term (current) drug therapy
CPT/HCPCS: 36415; 74176; 80053; 81001; 81025; 83605; 85025; 87086; 96361; 96374; 96375; 99284; A9270; J1885; J2405; J7040

== ENCOUNTER 2019-04-17 06:55 | Day surgery (SDC) | payer BC ==
[2019-04-17] MEDS ORDERED: Midazolam 1 MG/ML 2 ML SDV ONE (07:06)
[2019-04-17] MEDS ORDERED: fentaNYL 250 MCG/5 ML SDV ONE (07:06)
[2019-04-17] MEDS ORDERED: Propofol 200 MG/20 ML SDV ONE (07:06)
[2019-04-17] MEDS ORDERED: Dexamethasone 4 MG/ML 5 ML MDV ONE (07:09)
[2019-04-17] MEDS ORDERED: Ketorolac 30 MG/ML SDV ONE (07:09)
[2019-04-17] MEDS ORDERED: Glycopyrrolate 0.2 MG/ML SDV ONE (07:09)
[2019-04-17] MEDS ORDERED: Ondansetron 4 MG/2 ML SDV ONE (07:09)
[2019-04-17] MEDS ORDERED: Rocuronium 100 MG/10 ML Syringe ONE (07:09)
[2019-04-17] MEDS ORDERED: Lidocaine 2% 5 ML SDV ONE (07:09)
[2019-04-17] MEDS ORDERED: Sugammadex Sodium 200 MG/2 ML VIAL ONE (07:12)
[2019-04-17] MEDS ORDERED: Desflurane 240 ML Bottle ONE (07:19)
[2019-04-17] MEDS ORDERED: Methylene Blue 50 MG/10 ML Ampule ONE (07:25)
[2019-04-17] MEDS ORDERED: Bupivacaine 0.25% 10 ML SDV ONE ×2 (07:25→11:24)
--- NOTE | 2019-04-17 07:33 | PCM.PREANE ---
Preanesthetic Assessment - Anesthesia/Transfusion/Family Hx Anesthesia History: Prior Anesthesia Without Reaction Family History of Anesthesia Reaction: No Transfusion History: No Prior Transfusion(s) - Review of Systems General: No Symptoms Pulmonary: No Symptoms Cardiovascular: No Symptoms Gastrointestinal: No Symptoms Neurological: No Symptoms - Physical Assessment Height: 5 ft 10 in Weight: 95.708 kg ASA Class: 2 Mental Status: Alert & Oriented x3 Airway Class: Mallampati = 2 Dentition: Reports: Normal Dentition ROM/Head Extension: Full Lungs: Clear to Auscultation, Normal Respiratory Effort Cardiovascular: Regular Rate, Regular Rhythm - Allergies Allergies/Adverse Reactions: Allergies Allergy/AdvReac Type Severity Reaction Status Date / Time acetaminophen [From Vicodin] Allergy Hallucinati Verified 04/11/19 15:59 ons gluten Allergy Abdominal Verified 04/11/19 15:59 Pain hydrocodone [From Vicodin] Allergy Hallucinati Verified 04/11/19 15:59 ons iodine Allergy Hives Verified 04/11/19 15:59 iron infusion Allergy Seizure Uncoded 04/11/19 15:59 - Blood Blood Available: No - Anesthesia Plan Pre-Op Medication Ordered: None - Acknowledgements Anesthesia Type Planned: General Anesthesia Pt an Appropriate Candidate for the Planned Anesthesia: Yes Alternatives and Risks of Anesthesia Discussed w Pt/Guardian: Yes Pt/Guardian Understands and Agrees with Anesthesia Plan: Yes Additional Comments: PMH: thyroid replacement, migraines, HB=12.8 PLAN: get PreAnesthesia Questionnaire HEENT History: Reports: Other (See Below) Other HEENT History: wears glasses, has a "lazy eye" Cardiovascular History: Reports: Arrhythmia Other Cardiovascular History: hx of palpitations due to low calcium- saw Dr. Jung, still has low calcium but has not had palpitations for several montha Respiratory History: Reports: None Gastrointestinal History: Reports: Celiac Disease, Other (See Below) Other Gastrointestinal History: Celiac disease causes chronically low iron- has frequent iron infusions (will have an infusion the day before surgery), has Lymphatic Colitis that causes low calcium Genitourinary History: Reports: Renal Calculus Other Genitourinary History: passed a kidney stone 1 year ago SOCIAL MEDIA JOB TITLES History: Reports: Dysfunctional Uterine Bleeding, , Spontaneous Other OB/BYN History: spontaneous x11 Musculoskeletal History: Reports: Fracture Other Musculoskeletal History: hx of fx left foot at age 13- no hardware Neurological History: Reports: Concussion, Head Trauma, Migraines, Seizure, Other (See Below) Other Neuro History: hx of motion sickness since head injury in 2011, had a seizure from Iron infusion in August 2018 Psychiatric History: Reports: Depression Other Psychiatric History: post depression Endocrine/Metabolic History: Reports: Hypothyroidism, Obesity/BMI 30+ Hematologic History: Reports: Iron Deficiency Other Hematologic History: has frequent iron infusions Dermatologic History: Reports: Psoriasis, Other (See Below) Other Dermatologic History: has Celiac rash mostly on hands and feet- psoriasis all over, has Herpes Type A- causes cold sores and occasional vaginal lesions (none recently) - Infectious Disease History Infectious Disease History: Reports: None - Past Surgical History Head Surgeries/Procedures: Reports: None Female Surgical History: Reports: Section, Cystectomy, Tubal Ligation, Other (See Below) Other Female Surgeries/Procedures: removal of vaginal scar tissue - SUBSTANCE USE Smoking Status *Q: Never Smoker Recreational Drug Use History: No - HOME MEDS Home Medications: Home Meds Levothyroxine 75 mcg PO DAILY 06/13/16 [History] Multivitamin [Multi-Vitamin Daily] 1 tab PO DAILY 02/07/18 [History] Cholecalciferol (Vitamin D3) [Vitamin D3] 50,000 unit PO ASDIRECTED 04/11/19 [ History] Escitalopram [Lexapro] 40 mg PO DAILY 04/11/19 [History] Fish Oil/DHA/EPA [Fish Oil 1,200 MG] 1,200 mg PO DAILY 04/11/19 [History] - CURRENT (IN HOUSE) MEDS Current Meds: Current Medications Discontinued Medications Desflurane (Suprane) Confirm Administered Dose 240 ml .ROUTE .STK-MED ONE Stop: 04/17/19 07:20 Dexamethasone (Dexamethasone) Confirm Administered Dose 20 mg .ROUTE .STK-MED ONE Stop: 04/17/19 07:10 Fentanyl (Sublimaze) Confirm Administered Dose 250 mcg .ROUTE .STK-MED ONE Stop: 04/17/19 07:07 Glycopyrrolate (Robinul) Confirm Administered Dose 0.2 mg .ROUTE .STK-MED ONE Stop: 04/17/19 07:10 Ketorolac Tromethamine (Toradol) Confirm Administered Dose 30 mg .ROUTE .STK- MED ONE Stop: 04/17/19 07:10 Lidocaine (Xylocaine-Mpf 2%) Confirm Administered Dose 5 ml .ROUTE .STK-MED ONE Stop: 04/17/19 07:10 Midazolam HCl (Versed 1 Mg/Ml) Confirm Administered Dose 2 mg .ROUTE .STK-MED ONE Stop: 04/17/19 07:07 Ondansetron HCl (Zofran) Confirm Administered Dose 4 mg .ROUTE .STK-MED ONE Stop: 04/17/19 07:10 Propofol (Diprivan 20 Ml) Confirm Administered Dose 200 mg .ROUTE .STK-MED ONE Stop: 04/17/19 07:07 Rocuronium [place] (Zemuron) Confirm Administered Dose 100 mg .ROUTE .STK-MED ONE Stop: 04/17/19 07:10 Sugammadex Sodium ([place]) Confirm Administered Dose 200 mg .ROUTE .STK-MED ONE Stop: 04/17/19 07:13
[2019-04-17] MEDS ORDERED: Scopolamine 1.5 MG Transdermal Patch TRDERM PRN (07:34)
[2019-04-17 07:41] LABS: BLOOD UREA NITROGEN,BUN 10 mg/dL (7.0-18.0); CARBON DIOXIDE,CO2 23.7 mmol/L (21.0-32.0); CHLORIDE,CL 110 mmol/L (98-107); GLUCOSE RANDOM 94 mg/dL (74-106); POTASSIUM,K 3.3 mmol/L (3.5-5.1); SODIUM,NA 142 mmol/L (136-145)
[2019-04-17] MEDS ORDERED: Sodium Chloride 0.9% 20 ML ONE (07:42)
[2019-04-17] MEDS ORDERED: ceFAZolin 1 GM Vial ONE (07:42)
[2019-04-17] MEDS ORDERED: ceFAZolin 2 GM in Premix Bag 1 BAG IV ONE (07:44)
[2019-04-17] MEDS ORDERED: Lactated Ringers 1,000 ML IV SCH (07:45)
[2019-04-17] MEDS ORDERED: HYDROmorphone 2 MG/ML Syringe ONE ×2 (08:57→11:58)
[2019-04-17] MEDS ORDERED: Phenylephrine/Normal Saline 100 MCG/ML 10 ML Syringe ONE (09:14)
[2019-04-17] MEDS ORDERED: Fluorescein 5 ML Vial ONE (09:16)
[2019-04-17] MEDS ORDERED: Furosemide 40 MG/4 ML VIAL ONE (10:29)
[2019-04-17] MEDS ORDERED: Ondansetron 4 MG/2 ML SDV IVPUSH PRN (11:11)
[2019-04-17] MEDS ORDERED: Promethazine 25 MG/ML SDV IM PRN (11:11)
[2019-04-17] MEDS ORDERED: Acetaminophen/oxyCODONE 325-5 MG Tab PO PRN ×2 (11:11)
--- NOTE | 2019-04-17 11:19 | PCM.OPNOTE ---
- General Post-Op/Procedure Note Date of Surgery/Procedure: 04/17/19 Operative Procedure(s): Laparoscopic-assisted vaginal hysterectomy, bilateral salpingectomy, cystoscopy Findings: Normal-appearing uterus, ovaries. Evidence of prior bilateral tubal ligation. Normal bladder with bilateral ureteral efflux. Pre Op Diagnosis: Excessive and frequent menstruation with regular cycle Post-Op Diagnosis: Excessive and frequent menstruation with regular cycle Anesthesia Technique: General ET Tube Primary Surgeon: Liat Marti Anesthesia Provider: Gerardo Conterras Staff Forester: Allegra [place] Pathology: Uterus, cervix, bilateral fallopian tubes Fluid Replacement, Intraop: 3,000 Output, Urine Amount: 200 EBL in mLs: 400 Complications: None Condition: Good
[2019-04-17] MEDS: fentaNYL 100 MCG/2 ML SDV IVPUSH PRN ×2 (11:33→11:44)
[2019-04-17] MEDS ORDERED: HYDROmorphone 2 MG/ML Syringe IVPUSH ONE (12:02)
[2019-04-17] MEDS ORDERED: Acetaminophen 1,000 MG in Premix Bag 1 BAG IV ONE (12:04)
[2019-04-17] MEDS ORDERED: Ketorolac 30 MG/ML SDV IVPUSH ONE (12:05)
--- NOTE | 2019-04-17 12:45 | OR ---
SURGEON: Liat Marti MD DATE OF PROCEDURE: 04/17/2019 PREOPERATIVE DIAGNOSIS: Excessive and frequent menstruation with regular cycle. POSTOPERATIVE DIAGNOSIS: Excessive and frequent menstruation with regular cycle. PROCEDURES: Laparoscopic-assisted vaginal hysterectomy, bilateral salpingectomy, cystoscopy. PRIMARY SURGEON: Liat Marti MD. AGRICULTURE SCIENCE TEACHER: Dr. Allegra Lake. ANESTHESIA: General endotracheal. PATHOLOGY: Uterus, cervix, bilateral fallopian tubes. IV FLUIDS: 3000 mL of LR. URINE OUTPUT: 200 mL. ESTIMATED BLOOD LOSS: 400 mL. FINDINGS: Normal-appearing uterus and ovaries. Evidence of prior bilateral tubal ligation. Normal bladder with bilateral ureteral efflux. INDICATIONS: This is a 38-year-old patient with heavy menstruation. Prior to procedure, all treatment options were discussed with the patient including endometrial ablation, hormonal contraception, and hysterectomy. She had opted for hysterectomy and the risks of the surgery were discussed with the patient. Of note, endometrial biopsy was benign. A recent Pap smear was normal. DESCRIPTION OF PROCEDURE: The patient was taken to the operating room where general anesthesia was obtained. She was given 2 g of Ancef for IV prophylaxis. She was placed in the dorsal lithotomy position with legs in the Markus type stirrups. She was prepared and draped in normal sterile fashion. A weighted speculum was inserted into the vagina. The anterior lip of the cervix was grasped with an Allis clamp. The cervix was dilated with Hegar dilators. The HUMI uterine manipulator was inserted. The speculum was removed out of the vagina. Attention was then turned to the abdominal portion of the procedure. The infraumbilical fold was infiltrated with 0.5% bupivacaine without epinephrine. A 5 mm incision was made with a scalpel. A 5 mm trocar was inserted under direct visualization. The abdomen was insufflated to a pressure of 15 mmHg with carbon dioxide. Under direct visualization, after infiltration of local without epinephrine, 5 mm bilateral lower abdominal trocars were inserted. An inspection of the pelvis revealed normal-appearing uterus and ovaries with evidence of prior bilateral tubal ligation. The patient's right fallopian tube was grasped and the LigaSure used to clamp, coagulate, and transect the mesosalpinx along the fallopian tube to the level of the uterus. The round ligament was clamped, coagulated, and transected with LigaSure device. The broad ligament was opened and anterior and posterior leaf clamped, coagulated, and transected with the LigaSure. At this time, the bladder flap was created using LigaSure device. The right uterine arteries were clamped, coagulated, and transected with the LigaSure device with good hemostasis noted. In a similar fashion, the left fallopian tube round ligament and broad ligament and uterine artery were clamped, coagulated, and transected with the LigaSure device. At this time, the laparoscopic portion of the procedure was finished. Attention was then turned to the vagina. The uterine manipulator was removed. The anterior and posterior lips of the cervix were grasped with a Donya tenaculum. A circumferential incision was made at the cervicovaginal junction with the Bovie. The posterior colpotomy was accomplished with sharp dissection without difficulty. The anterior colpotomy was accomplished with a combination of blunt and sharp dissection without difficulty. The left uterosacral ligament was clamped, transected, and ligated with 0 Vicryl suture. The left uterosacral ligament was clamped, transected, and ligated with 0 Vicryl suture. Parametrial tissue was then clamped bilaterally, transected, and ligated with 0 Vicryl suture. The uterus was then removed. Laparotomy pack was placed in the pelvis. The pedicles were evaluated. A small amount of bleeding at the left uterosacral pedicle was noted. This became hemostatic with a [id number] suture. The uterosacral ligaments were suture fixated into the vaginal cuff angles with 0 Vicryl suture using the Duncan culdoplasty. The vaginal cuff was then closed in a running locked fashion with 0 Vicryl suture. A small area of bleeding was noted at the left apex of the vaginal cuff. A [id number] stitch was placed in this area with subsequent hemostasis. The Dubose catheter was removed. A 5 mm cystoscope was inserted into the bladder. Bilateral ureteral efflux was noted. A survey of the bladder revealed no laceration, sutures, or masses. The cystoscope was then removed. Attention was then turned again to the laparoscopic portion into the abdomen. The laparoscope was reinserted into the abdomen. The abdomen was re-insufflated. A small amount of bleeding at the vaginal cuff was noted. Hemostasis was obtained with a combination of the LigaSure and Vincenzo. Irrigation was performed and hemostasis was obtained. The abdomen was then desufflated. All trocars were removed. Skin incisions were closed with 4-0 Monocryl in subcuticular fashion. Bandages were placed over the incisions. The patient was awakened and taken to the recovery room in stable condition. There were no complications. Sponge, lap, and needle counts were correct. [id number] / MODL /[id number]
[2019-04-17] MEDS: Ibuprofen 800 MG Tab PO SCH ×2 (17:10→21:32)
--- NOTE | 2019-04-17 17:26 | PCM.SN ---
- Free Text/Narrative Note: Patient doing well. Tolerating food intake without nausea. Marie in place; has not voided or ambulated. 2 blisters noted on abdomen, to left of umbilical incision. Marked by nursing. Will continue to monitor. Remove marie in morning unless patient desires removal tonight. VSS.
[2019-04-17] MEDS: Gabapentin 300 MG Cap PO SCH (21:31)
[2019-04-17] MEDS: Docusate Sodium 100 MG Cap PO SCH (21:31)
[2019-04-18] MEDS: Ibuprofen 800 MG Tab PO SCH ×2 (04:50→11:39)
[2019-04-18 06:45] LABS: BLOOD UREA NITROGEN,BUN 9 mg/dL (7.0-18.0); CARBON DIOXIDE,CO2 26.5 mmol/L (21.0-32.0); CHLORIDE,CL 109 mmol/L (98-107); GLUCOSE RANDOM 89 mg/dL (74-106); POTASSIUM,K 3.2 mmol/L (3.5-5.1); SODIUM,NA 140 mmol/L (136-145)
[2019-04-18] MEDS ORDERED: Levothyroxine 75 MCG Tab PO SCH (07:30)
--- NOTE | 2019-04-18 07:55 | PCM.PN ---
- General Info Date of Service: 04/18/19 Admission Dx/Problem (Free Text): Patient ambulated in [place] this morning, reports increased pain afterward, but tolerable. Tolerating oral intake without nausea/vomiting. Denies fevers/ chills. Marie still in place. Functional Status: Reports: Pain Controlled, Tolerating Diet, Ambulating - Review of Systems General: Reports: No Symptoms HEENT: Reports: No Symptoms Pulmonary: Reports: No Symptoms Cardiovascular: Reports: No Symptoms Gastrointestinal: Reports: No Symptoms Genitourinary: Reports: No Symptoms Musculoskeletal: Reports: No Symptoms Skin: Reports: No Symptoms Neurological: Reports: No Symptoms Psychiatric: Reports: No Symptoms - Patient Data Vitals - Most Recent: Last Vital Signs Temp 36.4 C 04/18/19 04:51 Pulse 81 04/18/19 04:51 Resp 15 04/18/19 04:51 BP 97/56 L 04/18/19 04:51 Pulse Ox 96 04/18/19 04:51 Weight - Most Recent: 95.708 kg I&O - Last 24 Hours: Intake & Output 04/17/19 04/18/19 04/18/19 22:59 06:59 14:59 Output Total 150 2950 Balance -150 -2950 Lab Results Last 24 Hours: Laboratory Results - last 24 hr 04/17/19 04/18/19 04/18/19 Range/Units 07:13 06:20 06:20 Hgb 9.8 L (12.0-16.0) g/dL Hct 30.3 L (36.0-46.0) % Sodium 140 (136-145) mmol/L Potassium 3.2 L (3.5-5.1) mmol/L Chloride 109 H (98-107) mmol/L Carbon Dioxide 26.5 (21.0-32.0) mmol/L BUN 9 (7.0-18.0) mg/dL Creatinine 0.7 (0.6-1.0) mg/dL Est Cr Clr Drug Dosing 117.84 mL/min Estimated GFR (MDRD) > 60.0 ml/min Glucose 89 (74-106) mg/dL Calcium 7.4 L (8.5-10.1) mg/dL Blood Type O POSITIVE Antibody Screen POSITIVE Antibody Identification Anti-M Cold Antibody Screen POSITIVE Crossmatch See Detail Med Orders - Current: Current Medications Docusate Sodium (Colace) 100 mg PO BID [facility] [place] Last Admin: 04/17/19 21:31 Dose: 100 mg Gabapentin (Neurontin) 300 mg PO BID [facility] [place] Last Admin: 04/17/19 21:31 Dose: 300 mg Lactated Ringer's (Ringers, Lactated) 1,000 mls @ 125 mls/hr IV ASDIRECTED [facility] [place] Last Admin: 04/17/19 07:20 Dose: 125 mls/hr Ibuprofen (Motrin) 800 mg PO Q8H [facility] [place] Last Admin: 04/18/19 04:50 Dose: 800 mg Levothyroxine Sodium (Levothyroxine) 75 mcg PO ACBREAKFAST [facility] [place] Non-Formulary Medication (Escitalopram) 40 mg PO DAILY [facility] Ondansetron HCl (Zofran) 4 mg IVPUSH Q6H PRN PRN Reason: Nausea/Vomiting Oxycodone/Acetaminophen (Percocet 325-5 Mg) 1 tab PO Q4H PRN PRN Reason: Pain (moderate 4-6) Oxycodone/Acetaminophen (Percocet 325-5 Mg) 2 tab PO Q4H PRN PRN Reason: Pain (moderate 4-6) Last Admin: 04/17/19 15:55 Dose: 2 tab Promethazine HCl (Phenergan) 25 mg IM Q6H PRN PRN Reason: Nausea/Vomiting Scopolamine (Transderm-Scop) 1.5 mg TRDERM Q72H PRN PRN Reason: Nausea/Vomiting Last Admin: 04/17/19 07:48 Dose: 1.5 mg Discontinued Medications Bupivacaine HCl (Sensorcaine-Mpf 0.25%) Confirm Administered Dose 10 ml .ROUTE .STK-MED ONE Stop: 04/17/19 07:26 Bupivacaine HCl (Sensorcaine-Mpf 0.25%) Confirm Administered Dose 10 ml .ROUTE .STK-MED ONE Stop: 04/17/19 11:25 Cefazolin Sodium (Ancef) Confirm Administered Dose 2 gm .ROUTE .STK-MED ONE Stop: 04/17/19 07:43 Desflurane (Suprane) Confirm Administered Dose 240 ml .ROUTE .STK-MED ONE Stop: 04/17/19 07:20 Dexamethasone (Dexamethasone) Confirm Administered Dose 20 mg .ROUTE .STK-MED ONE Stop: 04/17/19 07:10 Fentanyl (Sublimaze) Confirm Administered Dose 250 mcg .ROUTE .STK-MED ONE Stop: 04/17/19 07:07 Fentanyl (Sublimaze) 50 mcg IVPUSH Q5M PRN PRN Reason: Pain Last Admin: 04/17/19 11:44 Dose: 50 mcg Fluorescein Sodium (Ak-Fluor) Confirm Administered Dose 5 ml .ROUTE .STK-MED ONE Stop: 04/17/19 09:17 Furosemide (Lasix) Confirm Administered Dose 40 mg .ROUTE .STK-MED ONE Stop: 04/17/19 10:30 Glycopyrrolate (Robinul) Confirm Administered Dose 0.2 mg .ROUTE .STK-MED ONE Stop: 04/17/19 07:10 Hydromorphone HCl (Dilaudid) Confirm Administered Dose 2 mg .ROUTE .STK-MED ONE Stop: 04/17/19 08:58 Hydromorphone HCl (Dilaudid) Confirm Administered Dose 2 mg .ROUTE .STK-MED ONE Stop: 04/17/19 11:59 Last Admin: 04/17/19 17:10 Dose: Not Given Hydromorphone HCl (Dilaudid) 2 mg IVPUSH ONETIME ONE Stop: 04/17/19 12:03 Last Admin: 04/17/19 12:00 Dose: 2 mg Cefazolin Sodium/Dextrose 2 gm (/ Premix) 50 mls @ 100 mls/hr IV ONETIME ONE Stop: 04/17/19 08:13 Last Admin: 04/17/19 17:10 Dose: Not Given Sodium Chloride (Normal Saline) Confirm Administered Dose 20 mls @ as directed .ROUTE .STK-MED ONE Stop: 04/17/19 07:43 Acetaminophen 1,000 mg/ Premix 100 mls @ 400 mls/hr IV NOW ONE Stop: 04/17/19 12:18 Last Admin: 04/17/19 12:11 Dose: 400 mls/hr Ketorolac Tromethamine (Toradol) Confirm Administered Dose 30 mg .ROUTE .STK- MED ONE Stop: 04/17/19 07:10 Ketorolac Tromethamine (Toradol) 30 mg IVPUSH ONETIME ONE Stop: 04/17/19 12:06 Last Admin: 04/17/19 12:19 Dose: 30 mg Lidocaine (Xylocaine-Mpf 2%) Confirm Administered Dose 5 ml .ROUTE .STK-MED ONE Stop: 04/17/19 07:10 Methylene Blue (Provayblue) Confirm Administered Dose 50 mg .ROUTE .STK-MED ONE Stop: 04/17/19 07:26 Midazolam HCl (Versed 1 Mg/Ml) Confirm Administered Dose 2 mg .ROUTE .STK-MED ONE Stop: 04/17/19 07:07 Ondansetron HCl (Zofran) Confirm Administered Dose 4 mg .ROUTE .STK-MED ONE Stop: 04/17/19 07:10 Phenylephrine HCl (Phenylephrine In Ns 100 Mcg/Ml) Confirm Administered Dose 1 mg .ROUTE .STK-MED ONE Stop: 04/17/19 09:15 Propofol (Diprivan 20 Ml) Confirm Administered Dose 200 mg .ROUTE .STK-MED ONE Stop: 04/17/19 07:07 Rocuronium [place] (Zemuron) Confirm Administered Dose 100 mg .ROUTE .STK-MED ONE Stop: 04/17/19 07:10 Sugammadex Sodium (Bridion) Confirm Administered Dose 200 mg .ROUTE .STK-MED ONE Stop: 04/17/19 07:13 - Exam General: Alert, Oriented Neck: Supple Lungs: Clear to Auscultation, Normal Respiratory Effort Cardiovascular: Regular Rate, Regular Rhythm GI/Abdominal Exam: Soft, No Distention, No Mass, Tender (appropriate post-op tenderness to palpation), Other (blister to left of umbilicus decreased in size) Extremities: Non-Tender, No Pedal Edema Skin: Warm, Dry, Intact Wound/Incisions: Dressing Dry and Intact Neurological: No New Focal Deficit Psy/Mental Status: Alert, Normal Affect, Normal Mood Sepsis Event Note - Evaluation Sepsis Screening Result: No Definite Risk - Focused Exam Vital Signs: Vital Signs Temp Pulse Resp BP Pulse Ox 04/18/19 04:51 36.4 C 81 15 97/56 L 96 04/18/19 01:37 36.4 C 67 18 95/53 L 96 Date Exam was Performed: 04/18/19 Time Exam was Performed: 07:53 - Problem List & Annotations (1) S/P laparoscopic assisted vaginal hysterectomy (LAVH) SNOMED Code(s): 625421664, 55493586, 835843413 Code(s): Z90.710 - ACQUIRED ABSENCE OF BOTH CERVIX AND UTERUS Status: Acute Current Visit: Yes - Problem List Review Problem List Initiated/Reviewed/Updated: Yes - My Orders Last 24 Hours: My Active Orders 04/17/19 07:13 ANTIBODY IDENTIFICATION [BBK] Routine COLD ABS [BBK] Routine RED BLOOD CELLS LP [BBK] Routine TYPE AND SCREEN [BBK] Routine 04/17/19 11:11 Patient Status [ADT] Routine Notify Provider Intake and Out [RC] ASDIRECTED Notify Provider Vital Signs [RC] ASDIRECTED Oxygen Therapy [RC] ASDIRECTED RT Incentive Spirometry [RC] Q2HWA Up With Assistance [RC] PER UNIT ROUTINE Up ad Becky [RC] PER UNIT ROUTINE Urinary Catheter Removal [RC] Per Unit Routine Acetaminophen/oxyCODONE [Percocet 325-5 MG] 1 tab PO Q4H PRN Acetaminophen/oxyCODONE [Percocet 325-5 MG] 2 tab PO Q4H PRN Ondansetron [Zofran] 4 mg IVPUSH Q6H PRN Promethazine [Phenergan] 25 mg IM Q6H PRN Peripheral IV Discontinue [OM.PC] Routine Sequential Compression Device [OM.PC] Per Unit Routine Resuscitation Status Routine 04/17/19 11:12 Antiembolic Devices [RC] PER UNIT ROUTINE Intake and Output [RC] PER UNIT ROUTINE 04/17/19 11:15 Ibuprofen [Motrin] 800 mg PO Q8H 04/17/19 21:00 Docusate Sodium [Colace] 100 mg PO BID Gabapentin [Neurontin] 300 mg PO BID 04/17/19 Dinner Gluten Free Diet [DIET] 04/17/19 Lunch Regular Diet [DIET] 04/18/19 07:30 Levothyroxine 75 mcg PO ACBREAKFAST 04/18/19 09:00 Escitalopram 40 mg PO DAILY - Assessment Assessment:: 38yo s/p LAVH, BS, Cysto for heavy menses, POD#1. - Plan Plan:: Remove marie. Discharge home today if able to void and pain continues to be controlled. Reviewed discharge instructions.
[2019-04-18] MEDS: Docusate Sodium 100 MG Cap PO SCH (08:52)
[2019-04-18] MEDS: Gabapentin 300 MG Cap PO SCH (08:52)
[2019-04-18] MEDS ORDERED: ESCITALOPRAM 40 MG PO SCH (09:00)
[2019-04-18 09:31] VITALS: BP 105/54; PULSE 79
--- NOTE | 2019-04-18 12:18 | PCM48HPAN ---
Post Anesthesia Note - EVALUATION WITHIN 48HRS OF ANESTHETIC Vital Signs in Normal Range: Yes Patient Participated in Evaluation: Yes Respiratory Function Stable: Yes Airway Patent: Yes Cardiovascular Function Stable: Yes Hydration Status Stable: Yes Pain Control Satisfactory: Yes Nausea and Vomiting Control Satisfactory: Yes Mental Status Recovered: Yes Vital Signs: Last Vital Signs Temp 97.8 F 04/18/19 08:00 Pulse 79 04/18/19 08:00 Resp 16 04/18/19 08:00 BP 105/54 L 04/18/19 08:00 Pulse Ox 97 04/18/19 08:00 - COMMENTS/OBSERVATIONS Free Text/Narrative:: Denies post-op anesthesia issues.
--- NOTE | 2019-04-18 15:35 | DISCH ---
DATE OF DISCHARGE: 04/18/2019 PRIMARY CARE PHYSICIAN: Ethel Ross DO DISCHARGE DIAGNOSIS: A 38-year-old female status post laparoscopic assisted vaginal hysterectomy, bilateral salpingectomy, cystoscopy for heavy menstruation, postoperative day number one. CONSULTANTS: None. PROCEDURES: Laparoscopic assisted vaginal hysterectomy, bilateral salpingectomy, and cystoscopy. HISTORY: This is a 38-year-old female who presented for planned surgery for heavy menstruation. Prior to surgery, we had reviewed all treatment options for this problem, and she desired definitive treatment with a hysterectomy. DIAGNOSTIC STUDIES: None. HOSPITAL COURSE: The patient presented for planned surgery. On April 17, 2019, she underwent a laparoscopic assisted vaginal hysterectomy, bilateral salpingectomy, and cystoscopy for heavy menstruation. There were no complications from surgery. On the day of discharge, the patient was able to ambulate, void, and was tolerating oral intake without nausea or vomiting. Her pain was controlled with oral pain medications. DISCHARGE DISPOSITION: Stable to home. ACTIVITY: No lifting over 10 pounds. DIET: Regular. MEDICATIONS: Percocet 5/325 mg 1 to 2 tablets p.o. q.6 hours p.r.n. pain, ibuprofen 800 mg every 8 hours p.r.n. pain, gabapentin 300 mg twice daily, stool softener. FOLLOWUP: The patient is scheduled to see Dr. Marti at [facility] in 2 weeks. SHIRIN / ELVIS /[id number]
== END 2019-04-18 13:10 | disposition home or self-care (01) ==
LOC: MW.SDS 06:55 → MW.OB 11:46 → MW.SDS 04-18 13:10
PROVIDERS: ATTEND Obstetrics & Gynecology
DX: N84.1 Polyp of cervix uteri (principal); N83.6 Hematosalpinx; N72 Inflammatory disease of cervix uteri; E03.9 Hypothyroidism, unspecified; D64.9 Anemia, unspecified; G43.909 Migraine, unspecified, not intractable, without status migrainosus; F32.9 Major depressive disorder, single episode, unspecified; L40.9 Psoriasis, unspecified; Z88.8 Allergy status to other drugs, medicaments and biological substances; Z98.51 Tubal ligation status; Z79.899 Other long term (current) drug therapy
CPT/HCPCS: 36415; 58552; 80048; 84703; 85014; 85018; 85025; 88307; A9270; J0131; J0690; J1100; J1170; J1885; J1940; J2001; J2250; J2370; J2405; J2704; J3010; J3490; J7120

== ENCOUNTER 2022-05-31 17:40 | Emergency (ER) | payer BC ==
[2022-05-31] MEDS ORDERED: Sodium Chloride 0.9% 1,000 ML IV ONE (17:53)
[2022-05-31] MEDS ORDERED: Famotidine 20 MG/2 ML SDV IVPUSH ONE (17:55)
[2022-05-31] MEDS ORDERED: Alum Hydro/Mag Hydro/Simeth XS 15 ML, Metoclopramide 5 MG, Lidocaine 2% 5 ML PO ONE ×3 (17:55)
[2022-05-31 18:54] LABS: CARBON DIOXIDE,CO2 22.4 mmol/L (21.0-32.0)
[2022-05-31] MEDS ORDERED: Loperamide 2 MG Cap PO STA (18:59)
[2022-05-31] MEDS ORDERED: traMADol 50 MG Tab PO ONE (20:06)
[2022-05-31 21:05] VITALS: BP 132/75; PULSE 71
== END 2022-05-31 21:04 | disposition home or self-care (01) ==
LOC: MW.ED 17:40
DX: K52.9 Noninfective gastroenteritis and colitis, unspecified (principal); E03.9 Hypothyroidism, unspecified; Z91.018 Allergy to other foods; Z88.5 Allergy status to narcotic agent; Z88.8 Allergy status to other drugs, medicaments and biological substances; Z91.041 Radiographic dye allergy status; Z79.899 Other long term (current) drug therapy
CPT/HCPCS: 36415; 80053; 81003; 83605; 83690; 83735; 85025; 87045; 87046; 87324; 87328; 87329; 87449; 87899; 93005; 96361; 96374; 99284; A9270; J3490; J7030; 93010

== ENCOUNTER 2023-08-10 12:53 | Observation (INO) | payer BC ==
[2023-08-10] MEDS: Sodium Chloride 0.9% 1,000 ML IV ONE ×2 (13:21→14:19)
[2023-08-10 13:23] LABS: BASOPHILS ABSOLUTE AUTO 0.07 K/uL (0.00-0.20); BASOPHILS PERCENT AUTO 0.5 % (0.0-1.0); EOSINOPHILS ABSOLUTE AUTO 0.01 K/uL (0.00-0.45); EOSINOPHILS PERCENT AUTO 0.1 % (0.0-6.0); HEMATOCRIT 43.9 % (37.0-47.0); HEMOGLOBIN 15.1 g/dL (12.0-16.0); IMMATURE GRAN ABSOLUTE AUTO 0.05 K/uL (0.00-0.05); IMMATURE GRAN PERCENT AUTO 0.4 % (0.0-0.4); LYMPHOCYTES ABSOLUTE AUTO 1.27 K/uL (1.00-4.80); LYMPHOCYTES PERCENT AUTO 9.2 % (24.0-44.0); MEAN CORPUSCULAR HEMOGLOBIN 28.7 pg (28.0-32.0); MEAN CORPUSCULAR HGB CONC 34.4 g/dL (32.0-36.0); MEAN CORPUSCULAR VOLUME 83.5 fL (83.0-99.0); MEAN PLATELET VOLUME 9.5 fL (9.4-12.3); MONOCYTES ABSOLUTE AUTO 1.18 K/uL (0.00-0.80); MONOCYTES PERCENT AUTO 8.5 % (0.0-8.0); NEUTROPHILS ABSOLUTE AUTO 11.27 K/uL (1.80-7.70); NEUTROPHILS PERCENT AUTO 81.3 % (41.0-71.0); PLATELET COUNT,PLT 494 K/uL (150-400); RED BLOOD CELL COUNT 5.26 M/uL (4.10-5.30); WHITE BLOOD CELL COUNT,WBC 13.85 K/uL (3.9-11.3)
[2023-08-10] MEDS: Ondansetron 4 MG/2 ML SDV IVPUSH ONE (13:23)
[2023-08-10] MEDS: Morphine 4 MG/ML Syringe IVPUSH ONE ×2 (13:23→14:52)
[2023-08-10 13:57] LABS: A/G RATIO 0.7 (0.9-1.6); ALBUMIN 2.5 g/dL (3.4-5.0); BILIRUBIN TOTAL 0.6 mg/dL (0.2-1.0); CALCIUM 8.1 mg/dL (8.5-10.1); CARBON DIOXIDE,CO2 19.8 mmol/L (21.0-32.0); CREATININE 0.9 mg/dL (0.6-1.0); EST CRCL DRUG DOSING (CG) 88.06 mL/min; POTASSIUM,K 2.9 mmol/L (3.5-5.1); PROTEIN TOTAL,TP 6.3 g/dL (6.4-8.2)
[2023-08-10 14:00] LABS: LACTIC ACID 1.1 mmol/L (0.4-2.0)
[2023-08-10] MEDS: Potassium Chloride 20 MEQ Tab.ER PO ONE ×2 (14:13→19:35)
[2023-08-10] MEDS: Acetaminophen/oxyCODONE 325-5 MG Tab PO ONE (16:24)
[2023-08-10] MEDS: Ciprofloxacin in D5W 400 MG in Premix Bag 1 BAG IV SCH (17:24)
[2023-08-10 17:25] LABS: BILIRUBIN,URINE NEGATIVE (NEGATIVE); GLUCOSE,URINE NEGATIVE (NEGATIVE); KETONES,URINE NEGATIVE (NEGATIVE); LEUKOCYTE ESTERASE,URINE NEGATIVE (NEGATIVE); NITRITE,URINE NEGATIVE (NEGATIVE); OCCULT BLOOD,URINE NEGATIVE (NEGATIVE); PROTEIN,URINE TRACE mg/dL (NEGATIVE); UROBILINOGEN,URINE 0.2 EU/dL (<2.0)
[2023-08-10] MEDS: metroNIDAZOLE/Normal Saline 500 MG in Premix Bag 1 BAG IV ONE (17:25)
[2023-08-10 17:44] LABS: COLOR,URINE YELLOW
[2023-08-10 17:45] LABS: APPEARANCE,URINE CLEAR; BACTERIA,URINE RARE (NEGATIVE); EPITHELIAL CELLS,URINE RARE (NONE-FEW); RBC,URINE 0-1 (0-2/HPF); WBC,URINE 0-2 (0-5/HPF)
[2023-08-10] MEDS ORDERED: Naloxone 0.4 MG/ML SDV IVPUSH PRN (17:56)
[2023-08-10] MEDS ORDERED: Ondansetron 4 MG/2 ML SDV IVPUSH PRN (17:56)
[2023-08-10] MEDS ORDERED: Ciprofloxacin in D5W 400 MG in Premix Bag 1 BAG IV SCH (18:30)
[2023-08-10] MEDS: Pantoprazole 40 MG in Sodium Chloride 0.9% 10 ML IVPUSH SCH (18:36)
[2023-08-10] MEDS: Sodium Chloride 0.9% 1,000 ML IV SCH (18:36)
[2023-08-10] MEDS: Ibuprofen 800 MG Tab PO PRN (20:11)
[2023-08-10] MEDS: Morphine 2 MG/ML SYRINGE IVPUSH PRN (23:14)
[2023-08-11] MEDS: metroNIDAZOLE/Normal Saline 500 MG in Premix Bag 1 BAG IV SCH (00:54)
[2023-08-11] MEDS: Acetaminophen 325 MG Tab PO PRN (02:12)
[2023-08-11] MEDS: Morphine 2 MG/ML SYRINGE IVPUSH PRN (03:32)
[2023-08-11 05:58] LABS: BASOPHILS PERCENT AUTO 1.9 % (0.0-1.0); EOSINOPHILS ABSOLUTE AUTO 0.14 K/uL (0.00-0.45); EOSINOPHILS PERCENT AUTO 2.7 % (0.0-6.0); HEMATOCRIT 37.9 % (37.0-47.0); HEMOGLOBIN 12.2 g/dL (12.0-16.0); IMMATURE GRAN ABSOLUTE AUTO 0.02 K/uL (0.00-0.05); IMMATURE GRAN PERCENT AUTO 0.4 % (0.0-0.4); LYMPHOCYTES ABSOLUTE AUTO 1.26 K/uL (1.00-4.80); LYMPHOCYTES PERCENT AUTO 23.9 % (24.0-44.0); MEAN CORPUSCULAR HEMOGLOBIN 28.3 pg (28.0-32.0); MEAN CORPUSCULAR HGB CONC 32.2 g/dL (32.0-36.0); MEAN CORPUSCULAR VOLUME 87.9 fL (83.0-99.0); MEAN PLATELET VOLUME 9.5 fL (9.4-12.3); MONOCYTES ABSOLUTE AUTO 0.52 K/uL (0.00-0.80); MONOCYTES PERCENT AUTO 9.8 % (0.0-8.0); NEUTROPHILS ABSOLUTE AUTO 3.24 K/uL (1.80-7.70); NEUTROPHILS PERCENT AUTO 61.3 % (41.0-71.0); PLATELET COUNT,PLT 371 K/uL (150-400); RED BLOOD CELL COUNT 4.31 M/uL (4.10-5.30); WHITE BLOOD CELL COUNT,WBC 5.28 K/uL (3.9-11.3)
[2023-08-11 06:30] LABS: A/G RATIO 0.6 (0.9-1.6); ALBUMIN 1.8 g/dL (3.4-5.0); BILIRUBIN TOTAL 0.9 mg/dL (0.2-1.0); CALCIUM 7.6 mg/dL (8.5-10.1); CARBON DIOXIDE,CO2 22.6 mmol/L (21.0-32.0); EST CRCL DRUG DOSING (CG) 79.25 mL/min; MAGNESIUM 1.6 mg/dL (1.8-2.4); PHOSPHORUS 3.2 mg/dL (2.6-4.7); POTASSIUM,K 2.9 mmol/L (3.5-5.1); PROTEIN TOTAL,TP 4.6 g/dL (6.4-8.2)
[2023-08-11] MEDS: FLUoxetine 20 MG Cap PO SCH (08:58)
[2023-08-11] MEDS: Potassium Chloride 20 MEQ Tab.ER PO SCH (08:59)
[2023-08-11] MEDS ORDERED: Escitalopram 10 MG Tab PO SCH (09:00)
[2023-08-11] MEDS: Escitalopram 10 MG Tab PO SCH (09:00)
[2023-08-11] MEDS: Magnesium Sulfate/Water 2 GM in Premix Bag 1 BAG IV ONE (10:22)
[2023-08-11] MEDS: Sodium Chloride 0.9% 1,000 ML IV SCH (10:30)
[2023-08-11] MEDS: NS with KCl 40mEq 1,000 ML IV SCH (12:43)
[2023-08-11 15:31] LABS: CALCIUM 7.4 mg/dL (8.5-10.1); CARBON DIOXIDE,CO2 20.5 mmol/L (21.0-32.0); CREATININE 0.9 mg/dL (0.6-1.0); EST CRCL DRUG DOSING (CG) 88.06 mL/min; POTASSIUM,K 3.5 mmol/L (3.5-5.1)
[2023-08-12 08:19] LABS: BASOPHILS ABSOLUTE AUTO 0.07 K/uL (0.00-0.20); BASOPHILS PERCENT AUTO 1.9 % (0.0-1.0); EOSINOPHILS ABSOLUTE AUTO 0.12 K/uL (0.00-0.45); EOSINOPHILS PERCENT AUTO 3.3 % (0.0-6.0); HEMATOCRIT 33.2 % (37.0-47.0); HEMOGLOBIN 10.8 g/dL (12.0-16.0); IMMATURE GRAN ABSOLUTE AUTO 0.01 K/uL (0.00-0.05); IMMATURE GRAN PERCENT AUTO 0.3 % (0.0-0.4); LYMPHOCYTES ABSOLUTE AUTO 0.75 K/uL (1.00-4.80); LYMPHOCYTES PERCENT AUTO 20.5 % (24.0-44.0); MEAN CORPUSCULAR HEMOGLOBIN 28.5 pg (28.0-32.0); MEAN CORPUSCULAR HGB CONC 32.5 g/dL (32.0-36.0); MEAN CORPUSCULAR VOLUME 87.6 fL (83.0-99.0); MEAN PLATELET VOLUME 9.2 fL (9.4-12.3); MONOCYTES ABSOLUTE AUTO 0.39 K/uL (0.00-0.80); MONOCYTES PERCENT AUTO 10.7 % (0.0-8.0); NEUTROPHILS ABSOLUTE AUTO 2.31 K/uL (1.80-7.70); NEUTROPHILS PERCENT AUTO 63.3 % (41.0-71.0); PLATELET COUNT,PLT 290 K/uL (150-400); RED BLOOD CELL COUNT 3.79 M/uL (4.10-5.30); WHITE BLOOD CELL COUNT,WBC 3.65 K/uL (3.9-11.3)
[2023-08-12 09:16] LABS: A/G RATIO 0.6 (0.9-1.6); ALBUMIN 1.6 g/dL (3.4-5.0); BILIRUBIN TOTAL 0.8 mg/dL (0.2-1.0); CALCIUM 7.5 mg/dL (8.5-10.1); CREATININE 0.8 mg/dL (0.6-1.0); EST CRCL DRUG DOSING (CG) 99.06 mL/min; MAGNESIUM 1.6 mg/dL (1.8-2.4); PHOSPHORUS 2.3 mg/dL (2.6-4.7); POTASSIUM,K 3.3 mmol/L (3.5-5.1); PROTEIN TOTAL,TP 4.2 g/dL (6.4-8.2)
[2023-08-12] MEDS: Magnesium Sulfate/Water 2 GM in Premix Bag 1 BAG IV ONE (10:41)
[2023-08-12 13:03] VITALS: BP 114/69; PULSE 76
== END 2023-08-12 12:55 | disposition home or self-care (01) ==
LOC: MW.ED 12:53 → MW.MS 17:09
PROVIDERS: ADMIT Internal Medicine; ATTEND Internal Medicine
DX: E87.6 Hypokalemia (principal); E03.9 Hypothyroidism, unspecified; Z79.890 Hormone replacement therapy; Z79.899 Other long term (current) drug therapy; Z91.041 Radiographic dye allergy status; Z88.5 Allergy status to narcotic agent
CPT/HCPCS: 36415; 74176; 76705; 80048; 80053; 81001; 82533; 83605; 83690; 83735; 84100; 85025; 87045; 87046; 87324; 87449; 87899; 96361; 96365; 96368; 96375; 96376; 99285; A9270; C9113; J0744; J1836; J2270; J2405; J3475; J3480; J3490; J7030; 93005; 93010; 96366; 96367; 99284; G0378

== ENCOUNTER 2023-08-16 11:41 | Emergency (ER) | payer BC ==
[2023-08-16 12:21] LABS: BASOPHILS PERCENT AUTO 0.7 % (0.0-1.0); EOSINOPHILS PERCENT AUTO 0.7 % (0.0-6.0); HEMATOCRIT 48.8 % (37.0-47.0); IMMATURE GRAN ABSOLUTE AUTO 0.05 K/uL (0.00-0.05); IMMATURE GRAN PERCENT AUTO 0.4 % (0.0-0.4); LYMPHOCYTES ABSOLUTE AUTO 1.27 K/uL (1.00-4.80); LYMPHOCYTES PERCENT AUTO 9.3 % (24.0-44.0); MEAN CORPUSCULAR HEMOGLOBIN 28.2 pg (28.0-32.0); MEAN CORPUSCULAR HGB CONC 32.8 g/dL (32.0-36.0); MEAN CORPUSCULAR VOLUME 85.9 fL (83.0-99.0); MEAN PLATELET VOLUME 9.4 fL (9.4-12.3); MONOCYTES ABSOLUTE AUTO 0.83 K/uL (0.00-0.80); MONOCYTES PERCENT AUTO 6.1 % (0.0-8.0); NEUTROPHILS ABSOLUTE AUTO 11.32 K/uL (1.80-7.70); NEUTROPHILS PERCENT AUTO 82.8 % (41.0-71.0); PLATELET COUNT,PLT 465 K/uL (150-400); RED BLOOD CELL COUNT 5.68 M/uL (4.10-5.30); WHITE BLOOD CELL COUNT,WBC 13.67 K/uL (3.9-11.3)
[2023-08-16] MEDS: Ondansetron 4 MG/2 ML SDV IVPUSH ONE (12:35)
[2023-08-16] MEDS: Sodium Chloride 0.9% 1,000 ML IV STA (12:35)
[2023-08-16 12:40] LABS: A/G RATIO 0.7 (0.9-1.6); ALANINE AMINOTRANSFERASE,ALT 112 IU/L (14-63); ALBUMIN 2.9 g/dL (3.4-5.0); ALKALINE PHOSPHATASE 251 U/L (46-116); ASPARTATE AMNIOTRANSFERASE,AST 52 IU/L (15-37); BILIRUBIN TOTAL 0.8 mg/dL (0.2-1.0); BLOOD UREA NITROGEN,BUN 8 mg/dL (7.0-18.0); CALCIUM 8.8 mg/dL (8.5-10.1); CARBON DIOXIDE,CO2 18.5 mmol/L (21.0-32.0); CHLORIDE,CL 104 mmol/L (98-107); EST CRCL DRUG DOSING (CG) 79.25 mL/min; GLUCOSE RANDOM 114 mg/dL (74-106); LIPASE 32 U/L (16-77); POTASSIUM,K 2.7 mmol/L (3.5-5.1); PROTEIN TOTAL,TP 6.9 g/dL (6.4-8.2); SODIUM,NA 136 mmol/L (136-145)
[2023-08-16] MEDS: Sodium Chloride 0.9% 2.5 ML Syringe FLUSH PRN (12:41)
[2023-08-16] MEDS: Sodium Chloride 0.9% 10 ML Syringe FLUSH PRN (12:41)
[2023-08-16 12:42] LABS: ESTIMATED GFR 72 mL/min (>60)
[2023-08-16] MEDS ORDERED: Potassium Chloride 20 MEQ in Premix Bag 1 BAG IV ONE (13:21)
[2023-08-16] MEDS: NS with KCl 40mEq 1,000 ML IV ONE (14:09)
[2023-08-16 15:02] LABS: APPEARANCE,URINE CLEAR; BILIRUBIN,URINE NEGATIVE (NEGATIVE); COLOR,URINE YELLOW; GLUCOSE,URINE NEGATIVE (NEGATIVE); KETONES,URINE NEGATIVE (NEGATIVE); LEUKOCYTE ESTERASE,URINE NEGATIVE (NEGATIVE); NITRITE,URINE NEGATIVE (NEGATIVE); OCCULT BLOOD,URINE NEGATIVE (NEGATIVE); PROTEIN,URINE 30 mg/dL (NEGATIVE); UROBILINOGEN,URINE 0.2 EU/dL (<2.0)
[2023-08-16] MEDS: methylPREDNISolone Sodium Succinate 125 MG/2 ML SDV IVPUSH ONE (15:08)
[2023-08-16 15:12] LABS: EPITHELIAL CELLS,URINE FEW (NONE-FEW); RBC,URINE 0-2 (0-2/HPF); WBC,URINE 0-2 (0-5/HPF)
[2023-08-16 15:13] LABS: BACTERIA,URINE RARE (NEGATIVE); MUCUS,URINE LIGHT (NONE-MOD)
[2023-08-16] MEDS: Magnesium Sulfate/Water 2 GM in Premix Bag 1 BAG IV ONE (15:16)
[2023-08-16 17:57] VITALS: BP 98/53; PULSE 80
== END 2023-08-16 18:31 | disposition home or self-care (01) ==
LOC: MW.ED 11:41
DX: R11.2 Nausea with vomiting, unspecified (principal); R19.7 Diarrhea, unspecified; E03.9 Hypothyroidism, unspecified; Z79.899 Other long term (current) drug therapy; Z91.041 Radiographic dye allergy status; Z91.018 Allergy to other foods; Z88.8 Allergy status to other drugs, medicaments and biological substances; Z86.16 Personal history of COVID-19; Z75.8 Other problems related to medical facilities and other health care
CPT/HCPCS: 36415; 74018; 74176; 80053; 81001; 83605; 83690; 83735; 84484; 84703; 85025; 87040; 96361; 96365; 96366; 96368; 96375; 99284; J2405; J2930; J3475; J3480; J3490; J7030